=== PATIENT | male | born 1985 | race African-American/Black ===

== ENCOUNTER 2020-11-25 17:45 | Inpatient (IN) | payer OTHER, SELFPAY ==
[2020-11-25 17:59] VITALS: RESP 16
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
--- NOTE | 2020-11-25 18:38 | PC.NURSE ---
asked client question regarding food and drug allergy. patient didnt respond.
[2020-11-25 19:51] LABS: COVID-19 Test Negative (Negative); IDNOW Serial# 9DD0AD1C
[2020-11-25 21:16] LABS: Appearance Urine CLEAR; Color Urine YELLOW; Glucose Urine UA NEG (NEG); Leukocyte Esterase Urine NEG (NEG); Nitrite Urine NEG (NEG); PH 6.5 (5.0-8.0); Specific Gravity - Urine 1.025 (1.005-1.025); UACC Culture Trigger NO; Urine Blood NEG (NEG); Urine Ketones 5 MG/DL (NEG); Urine Protein 1+ MG/DL (NEG-TRACE)
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
[2020-11-25 21:29] LABS: Bacteria Urine TRACE /LPF; Mucus Urine 1+ /LPF; RBC Urine 0-2 /HPF (0); Squamous Epithelial Cell Urine TRACE /LPF; WBC Urine 0-2 /HPF (0-4)
[2020-11-25 21:36] LABS: Amphetamine Screen Urine Not Detected (Not Detect); Barbiturates, Urine Not Detected (Not Detect); Benzodiazepines Screen Urine Not Detected (Not Detect); Cannabinoid Screen Urine Not Detected (Not Detect); Cocaine Screen Urine Not Detected (Not Detect); Fentanyl, urine Not Detected (Not Detect); Opiate Screen Urine Not Detected (Not Detect); Phencyclidine Screen Urine Not Detected (Not Detect)
[2020-11-25 22:00] VITALS: RESP 20
[2020-11-25] MEDS: Haloperidol Lactate 5 MG/ML VIAL IM (22:00)
[2020-11-25] MEDS: diphenhydrAMINE HCL 50 MG/ML VIAL IM (22:00)
[2020-11-25] MEDS: LORazepam 2 MG/ML VIAL IM (22:00)
[2020-11-25 22:15] VITALS: RESP 20
[2020-11-25 22:30] VITALS: RESP 16
[2020-11-25 22:45] VITALS: RESP 18
--- NOTE | 2020-11-25 22:51 | MHC.CARE ---
Pt is an involuntary inpatient bedsearch. Pt will likely be going to [facility] today.
[2020-11-25 23:00] VITALS: RESP 20
--- NOTE | 2020-11-25 23:33 | PC.NURSE ---
Patient persistently demanding discharges when explain section 12 patient got severely agitated, [facility] called to check if any clinician coming to assess the patient and we were notified no clinician available at this time may be overnight but not sure. When information was relayed to the patient he got infuriated, offered medication refused, care team assistance requested, care team tried to assess the patient but patient did not share much, patient is tangential, paranoid, when patient disposition was updated to the patient, patient started yelling screaming, punching lockers, threatening, provider notified, ordered Ativan 2 mg IM, Haldol 5 mg IM, and Bendrayl 50 mg IM administered as ordered at 2200 with security's support, patient doesn't require physical restraint, patient is currently in chair sleeping, will continue to monitor.
--- NOTE | 2020-11-26 06:14 | PC.NURSE ---
Patient overall slept five hours in his chair, no distress observed/reported, patient behavior is unpredictable may escalate, medication non-compliant, thought process paranoid, internally occupied, poor eye contact, patient not cooperative with care team assessment, disposition per care team is section 12 inpatient, patient is being pre accepted to [facility], patient blood draw pending due to patient refusal, VSS, will continue to monitor.
[2020-11-26 06:48] VITALS: BP 145/87; PULSE 66; RESP 16; O2SAT 99
--- NOTE | 2020-11-26 07:03 | PC.NURSE ---
patient awake at the opening to shift, seated in room with lights on, still and staring. respirations even and [id number], patient appears in no distress
--- NOTE | 2020-11-26 07:08 | PC.NURSE ---
patient presented with breakfast and responds im trying to leave right now not interested in even sealed juice.
--- NOTE | 2020-11-26 07:39 | PC.NURSE ---
patient repeatedly requesting for me to call [facility] and have client released. t/w informed patient he was probably to be hospitalized today patient soon thereafter checked doors, sympbolically taps on glass of nurse station, checked care team door and exit door.
[2020-11-26 16:15] VITALS: BP 113/70; PULSE 165; TEMP 36.6
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
--- NOTE | 2020-11-27 10:32 | HO.PSYCHPN ---
Subjective Subjective Date of Service: 11/27/20 Reason For Visit: PSYCHOSIS Subjective Notes: Mayo Warning Healthcare Proxy: No Guardianship: No Medical Problems Affecting Mental Status: No Interim History: Pt isolating in room or pacing/intrussive at nursing desk - reaching for phones and other belongings, not responding to redirection- focused on getting out call the police and let me go asking to dial 911, wanting his belongings Had to call security to redirect milton to his room- Medication Compliance: No Attending Groups: No Review of Systems Acute medical concerns: No Review of Systems Review of Systems unable to focus on anything but dc Constitutional: Reports no additional constitutional complaints Mental Status Exam Mental Status Exam Patient Appearance: Disheveled Patient Orientation: Person Level of Consciousness: Awake Patient Behavior: Guarded, Suspicious, Restless, Verbal Threats (no specific), Resistive to Care, Uncooperative, Impulsive and Poor Eye Contact Behavior Comments: disheveled wearing sunglasses Mood Description: Hostile and Angry Affect Description: Suspicious and Hostile Patient Cognition Impaired: No Ability to Follow Directions: Poor Speech Pattern: Garbled, Rambling and Poor Articulation Thought Process: Racing and Illogical Thought Content: positive for Flight of Ideas, positive for Neologisms (?) and positive for Disorganized Abnormal Motor Activity Signs and Symptoms: Agitation Judgement: Poor Diagnostics Vital Signs (24Hr): Vital Signs - 24 hr 11/26/20 16:15 Temperature 97.8 F Pulse Rate 165 H Blood Pressure 113/70 Body Mass Index 30.0 Labs Labs: Laboratory Results - last 48 hr 11/25/20 11/25/20 11/25/20 19:25 21:03 21:03 Urine Color YELLOW Urine Appearance CLEAR Urine pH 6.5 Ur Specific [place] 1.025 Urine Protein 1+ H Urine Glucose (UA) NEG Urine Ketones 5 Urine Blood NEG Urine Nitrite NEG Ur Leukocyte Esterase NEG Urine RBC 0-2 Urine WBC 0-2 Ur Squamous Epith Cells TRACE Urine Bacteria TRACE Urine Mucus 1+ Urine Opiates Screen Not Detected Urine Fentanyl Screen Not Detected Ur Barbiturates Screen Not Detected Ur Phencyclidine Scrn Not Detected Ur Amphetamines Screen Not Detected U Benzodiazepines Scrn Not Detected Urine Cocaine Screen Not Detected U Marijuana (THC) Screen Not Detected COVID-19 (ANDERS) Negative COVID-19 Clin Com See Note Medications Medications Current Medications Acetaminophen (Acetaminophen 325 Mg Tablet) 650 mg PO Q6H PRN PRN Reason: Headache/Pain Mild Scale (1-3) Al Hydroxide/Mg Hydroxide (Magnesium Hydrox/Alum Hydrox 30 Ml Oral.Susp) 30 ml PO Q6H PRN PRN Reason: Heartburn/Nausea Diphenhydramine HCl (Diphenhydramine Hcl 50 Mg/Ml Vial) 50 mg IM BID PRN PRN Reason: agitation, EPS Haloperidol Lactate (Haloperidol Lactate 5 Mg/Ml Vial) 5 mg IM BID PRN PRN Reason: agitation, psychosis Hydroxyzine HCl (Hydroxyzine Hcl 50 Mg Tablet) 50 mg PO Q6H PRN PRN Reason: Anxiety Lorazepam (Lorazepam 2 Mg/Ml Vial) 2 mg IM BID PRN PRN Reason: agitation Magnesium Hydroxide (Milk Of Magnesia 30 Ml Oral.Susp) 30 ml PO DAILY PRN PRN Reason: Constipation Risperidone (Risperidone 2 Mg Tablet) 2 mg PO BEDTIME PRN PRN Reason: psychosis Trazodone HCl (Trazodone Hcl 50 Mg Tablet) 50 mg PO BEDTIME PRN PRN Reason: Insomnia Allergies Allergies Allergy/AdvReac Type Severity Reaction Status Date / Time No Known Allergies Allergy Unverified 11/13/19 18:45 Assessment & Plan Assessment & Plan (1) Schizoaffective disorder: Status: Acute Code(s): F25.9 - Schizoaffective disorder, unspecified Assessment and Plan: Pt continues agitated and disorganized with no insight or judgement Greater than 50% of the session was spent on counseling and/or coordination of care Patient educated on: other (on sec 12 b, need to stay on unit for now) Informed Consent: does not understand and further education needed Reason for contiued inpatient stay Substantial Risk for: inability to function and rapid decompensation
[2020-11-27] MEDS: Haloperidol Lactate 5 MG/ML VIAL 10 MG IM (22:10)
[2020-11-27] MEDS: LORazepam 2 MG/ML VIAL IM (22:10)
[2020-11-27] MEDS: diphenhydrAMINE HCL 50 MG/ML VIAL IM (22:10)
--- NOTE | 2020-11-27 22:33 | PM.EVENT ---
Event Note Date of Service: 11/27/20 Event Note: I saw patient after chemical retrain with Haldol and Benadryl. He was standing in middle of room, security standing by, he looks threatening and not allowing vitals evaluation at that time.
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
--- NOTE | 2020-11-28 09:58 | HO.PSYCHPN ---
Subjective Subjective Date of Service: 11/28/20 Reason For Visit: PSYCHOSIS Subjective Notes: Section 12B Interim History: Says he is fine, wants to know when he can leave, but no longer agitated at nurses station today compared to yesterday. Medication Compliance: No Attending Groups: No Review of Systems Acute medical concerns: No Medical Review of Systems: unchanged Diagnostics Vital Signs (24Hr): Body Mass Index 30.0 Medications Medications Current Medications Acetaminophen (Acetaminophen 325 Mg Tablet) 650 mg PO Q6H PRN PRN Reason: Headache/Pain Mild Scale (1-3) Al Hydroxide/Mg Hydroxide (Magnesium Hydrox/Alum Hydrox 30 Ml Oral.Susp) 30 ml PO Q6H PRN PRN Reason: Heartburn/Nausea Diphenhydramine HCl (Diphenhydramine Hcl 50 Mg/Ml Vial) 50 mg IM BID PRN PRN Reason: agitation, EPS Haloperidol Lactate (Haloperidol Lactate 5 Mg/Ml Vial) 5 mg IM BID PRN PRN Reason: agitation, psychosis Hydroxyzine HCl (Hydroxyzine Hcl 50 Mg Tablet) 50 mg PO Q6H PRN PRN Reason: Anxiety Lorazepam (Lorazepam 2 Mg/Ml Vial) 2 mg IM BID PRN PRN Reason: agitation Magnesium Hydroxide (Milk Of Magnesia 30 Ml Oral.Susp) 30 ml PO DAILY PRN PRN Reason: Constipation Risperidone (Risperidone 2 Mg Tablet) 2 mg PO BEDTIME PRN PRN Reason: psychosis Trazodone HCl (Trazodone Hcl 50 Mg Tablet) 50 mg PO BEDTIME PRN PRN Reason: Insomnia Allergies Allergies Allergy/AdvReac Type Severity Reaction Status Date / Time No Known Allergies Allergy Unverified 11/13/19 18:45 Assessment & Plan Assessment & Plan (1) Schizoaffective disorder: Status: Acute Code(s): F25.9 - Schizoaffective disorder, unspecified Assessment and Plan: Pt less agitated today and slept last pm but still pacing and not any more engaged in care- Greater than 50% of the session was spent on counseling and/or coordination of care Patient educated on: other Informed Consent: further education needed Reason for contiued inpatient stay Substantial Risk for: inability to function and rapid decompensation
[2020-11-29] MEDS: Haloperidol Lactate 5 MG/ML VIAL IM (13:29)
[2020-11-29] MEDS: LORazepam 2 MG/ML VIAL IM (13:29)
[2020-11-29 13:35] VITALS: BP 136/68; PULSE 89; RESP 18; TEMP 37.1; O2SAT 99
[2020-11-29 14:05] VITALS: BP 126/64; PULSE 79; RESP 16; TEMP 36.7; O2SAT 98
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
--- NOTE | 2020-11-29 15:40 | HO.PSYCHPN ---
Subjective Subjective Date of Service: 11/29/20 Reason For Visit: PSYCHOSIS Healthcare Proxy: No Guardianship: No Medical Problems Affecting Mental Status: No Interim History: Pt asking for discharge. Discussed re-starting medications. He reports hx of Invega, PO and Sustenna-he reported interest in returning to this regime. Right after we met-he became upset at the telephone and required physical, mechanical, chemical restraint. Cross reference to restraint progress note. Medication Compliance: No Side effects from medications: No Attending Groups: No Review of Systems Acute medical concerns: No Medical Review of Systems: unchanged Review of Systems Musculoskeletal: Reports other (reports leg discomfort, however, paranoia prevents him from discussion ) Reports behavioral changes Psychiatric: Reports abnormal sleep pattern, Reports anxiety, Reports behavioral changes, Reports change in appetite, Reports depression, Reports difficulty concentrating, Reports auditory hallucinations, Reports hopelessness, Reports irritability, Reports anhedonia, Reports mood swings, Reports paranoia, Reports homicidal ideation (denies) and Reports suicidal ideation (denies) Mental Status Exam Mental Status Exam Patient Appearance: Fatigued, Disheveled, Unkempt and Malodorous Patient Orientation: Person and Place Level of Consciousness: Awake, Restless and Combative Patient Behavior: Guarded, Talkative, Suspicious, Aggressive, Restless, Belligerent, Wandering, Verbal Threats, Swearing, Anxious, Fearful, Resistive to Care, Avoidant, Combative, Distractible, Confused, Isolative, Impulsive, Pacing and Poor Eye Contact (has dark sunglasses on) Mood Description: Calm, Suspicious, Withdrawn, Constricted, Hostile, Labile, Angry, Nervous and Apprehensive Affect Description: Constricted and Labile Patient Cognition Impaired: Yes Ability to Follow Directions: Poor Speech Pattern: Clear, Spontaneous Speech, Inappropriate, Excessive, Loud, Pressured and Includes Profanity Memory Description: Remote Impaired and Episodic Impaired Hallucinations: Auditory Delusions: Being Controlled, Paranoid Ideation and Present Perceptual Disturbances: Derealization and Hallucinations Thought Process: Illogical and Distracted Thought Content: positive for [place], positive for [place], positive for [place]um[place], positive for Perseveration, positive for Preoccupation, positive for Thought Blocking, positive for Suicidal Ideation (denied) and positive for Homicidal Ideation (denies) Depressive Symptoms: Increased Irritability, Loss of Int. in Activity and Difficulty Concentrating Abnormal Motor Activity Signs and Symptoms: Aggression, Agitation, Hyperactivity and Restlessness Judgement: Poor Diagnostics Vital Signs (24Hr): Vital Signs - 24 hr 11/29/20 13:35 11/29/20 14:05 Temperature 98.7 F 98.1 F Pulse Rate 89 79 Respiratory Rate 18 16 Blood Pressure 136/68 126/64 Pulse Oximetry 99 98 Body Mass Index 30.0 Medications Medications Current Medications Acetaminophen (Acetaminophen 325 Mg Tablet) 650 mg PO Q6H PRN PRN Reason: Headache/Pain Mild Scale (1-3) Al Hydroxide/Mg Hydroxide (Magnesium Hydrox/Alum Hydrox 30 Ml Oral.Susp) 30 ml PO Q6H PRN PRN Reason: Heartburn/Nausea Benztropine Mesylate (Benztropine Mesylate 1 Mg Tablet) 1 mg PO BID PRN PRN Reason: EPS Diphenhydramine HCl (Diphenhydramine Hcl 50 Mg/Ml Vial) 50 mg IM BID PRN PRN Reason: agitation, EPS Haloperidol Lactate (Haloperidol Lactate 5 Mg/Ml Vial) 5 mg IM BID PRN PRN Reason: agitation, psychosis Last Admin: 11/29/20 13:29 Dose: 5 mg Documented by: Hydroxyzine HCl (Hydroxyzine Hcl 50 Mg Tablet) 50 mg PO Q6H PRN PRN Reason: Anxiety Lorazepam (Lorazepam 2 Mg/Ml Vial) 2 mg IM BID PRN PRN Reason: agitation Last Admin: 11/29/20 13:29 Dose: 2 mg Documented by: Magnesium Hydroxide (Milk Of Magnesia 30 Ml Oral.Susp) 30 ml PO DAILY PRN PRN Reason: Constipation Paliperidone (Paliperidone Er 3 Mg Tab.Er.24) 3 mg PO DAILY JAIDEN Risperidone (Risperidone 2 Mg Tablet) 2 mg PO BEDTIME PRN PRN Reason: psychosis Trazodone HCl (Trazodone Hcl 50 Mg Tablet) 50 mg PO BEDTIME PRN PRN Reason: Insomnia Allergies Allergies Allergy/AdvReac Type Severity Reaction Status Date / Time No Known Allergies Allergy Unverified 11/13/19 18:45 Assessment & Plan Assessment & Plan (1) Schizoaffective disorder: Status: Acute Code(s): F25.9 - Schizoaffective disorder, unspecified Assessment and Plan: Pt precipitously agitated today-requiring physical, mechanical, chemical restraint. Prior to this, agreed to begin Invega PO with a longer term goal of a change to Sustenna. Greater than 50% of the session was spent on counseling and/or coordination of care Patient educated on: medication risk/benefits and therapeutic strategies Informed Consent: further education needed Reason for contiued inpatient stay Substantial Risk for: harm to self, harm to others, inability to function and rapid decompensation
[2020-11-29 18:00] VITALS: RESP 14
[2020-11-30] MEDS: Paliperidone ER 3 MG TAB.ER.24 PO (08:33)
[2020-11-30 09:30] VITALS: BP 131/79; PULSE 67; RESP 15; TEMP 36.6; O2SAT 99
--- NOTE | 2020-11-30 22:44 | HO.PSYCHPN ---
Subjective Subjective Date of Service: 11/30/20 Reason For Visit: PSYCHOSIS Subjective Notes: Section 12B Interim History: Met with Maciej to discuss plan of care. He reports he is asymptomatic and asks for discharge. Discussed briefly his legal status and plan to file for civil commitment on 12/01. Discussed plan to continue to titrate Invega-started with 3 mg today and will increase to base dosing of 6 mg on 12/01 with Sustenna IM to follow if he tolerates these po dosages. Pt continues to agree with the plan. Discussed avoiding court dates if we are able to titrate his medications and treat presenting symptoms so he may return to his home. Today, he discussed his concerns about time-wanting to be out by Sunday, then Sunday. Discussed taking this week to week and assessing his progress. He did agree to this and team reports no subsequent outburst of emotional agitation after our meeting. Met with pt later in the day and he commented this plan I can work with . Medication Compliance: Yes Side effects from medications: No Attending Groups: No Review of Systems Acute medical concerns: No Medical Review of Systems: unchanged Review of Systems Reports behavioral changes Psychiatric: Reports anxiety, Reports behavioral changes, Reports difficulty concentrating, Reports auditory hallucinations, Reports irritability, Reports mood swings and Reports paranoia Mental Status Exam Mental Status Exam Patient Appearance: Disheveled, Unkempt and Malodorous Patient Orientation: Person, Place and Situation Level of Consciousness: Alert Patient Behavior: Guarded, Talkative, Suspicious, Anxious, Fearful, Avoidant, Distractible, Good Eye Contact and Impulsive Mood Description: Constricted and Apprehensive Affect Description: Constricted Patient Cognition Impaired: Yes Ability to Follow Directions: Good Speech Pattern: Spontaneous Speech and Soft-Spoken Memory Description: Episodic Impaired Hallucinations: None (pt denies, however some of his behaviors appear to be responding to internal stimuli) Delusions: Paranoid Ideation Thought Process: Distracted Thought Content: positive for [place], positive for Circumstantial (focused on time today), positive for Perseveration, positive for Preoccupation, positive for Suicidal Ideation (denies) and positive for Homicidal Ideation (denies) Depressive Symptoms: Increased Anxiety, Diff. Making Decisions, Increased Irritability and Difficulty Concentrating Abnormal Motor Activity Signs and Symptoms: Restlessness (at times- responds to interventions) Judgement: Poor Diagnostics Vital Signs (24Hr): Vital Signs - 24 hr 11/30/20 09:30 Temperature 98 F Pulse Rate 67 Respiratory Rate 15 Blood Pressure 131/79 Pulse Oximetry 99 Body Mass Index 30.0 Labs Labs: Maciej has declined diagnostics at this time. Medications Medications Current Medications Acetaminophen (Acetaminophen 325 Mg Tablet) 650 mg PO Q6H PRN PRN Reason: Headache/Pain Mild Scale (1-3) Al Hydroxide/Mg Hydroxide (Magnesium Hydrox/Alum Hydrox 30 Ml Oral.Susp) 30 ml PO Q6H PRN PRN Reason: Heartburn/Nausea Benztropine Mesylate (Benztropine Mesylate 1 Mg Tablet) 1 mg PO BID PRN PRN Reason: EPS Diphenhydramine HCl (Diphenhydramine Hcl 50 Mg/Ml Vial) 50 mg IM BID PRN PRN Reason: agitation, EPS Haloperidol (Haloperidol 5 Mg Tablet) 5 mg PO TID PRN PRN Reason: psychosis, agitation Hydroxyzine HCl (Hydroxyzine Hcl 50 Mg Tablet) 50 mg PO Q6H PRN PRN Reason: Anxiety Lorazepam (Lorazepam 1 Mg Tablet) 1 mg PO Q4H PRN PRN Reason: anxiety, agitation Magnesium Hydroxide (Milk Of Magnesia 30 Ml Oral.Susp) 30 ml PO DAILY PRN PRN Reason: Constipation Paliperidone (Paliperidone Er 6 Mg Tab.Er.24) 6 mg PO DAILY JAIDEN Trazodone HCl (Trazodone Hcl 50 Mg Tablet) 50 mg PO BEDTIME PRN PRN Reason: Insomnia Allergies Allergies Allergy/AdvReac Type Severity Reaction Status Date / Time No Known Allergies Allergy Unverified 11/13/19 18:45 Assessment & Plan Assessment & Plan (1) Schizoaffective disorder: Status: Acute Code(s): F25.9 - Schizoaffective disorder, unspecified Assessment and Plan: 11/30/20- Maciej agrees to continue Invega PO trial-tolerated 3 mg this a.m. Will increase to base dose of 6mg on 12/01 and prepare for Sustenna injection. Will file for civil commitment on 12/01/20. Greater than 50% of the session was spent on counseling and/or coordination of care Patient educated on: medication risk/benefits and other (legal status and civil commitment) Informed Consent: understands and further education needed Reason for contiued inpatient stay Substantial Risk for: harm to self, harm to others, inability to function and rapid decompensation
[2020-12-01 06:00] VITALS: BP 118/65; PULSE 61; TEMP 36.1; O2SAT 100
[2020-12-01] MEDS: Paliperidone ER 6 MG TAB.ER.24 PO (09:24)
--- NOTE | 2020-12-01 19:38 | HO.PSYCHPN ---
Subjective Subjective Date of Service: 12/01/20 Reason For Visit: PSYCHOSIS Subjective Notes: Section 7 Interim History: Quiet, visable on the unit-on the periphery most of the time and mostly isolative. Few brief interactions with pt where he is calm, appropriate and able to engage without agitation or confrontation. Invega 6 mg initiated today po. Medication Compliance: Yes Side effects from medications: No Attending Groups: Yes Review of Systems Acute medical concerns: No Medical Review of Systems: unchanged Review of Systems Reports behavioral changes Psychiatric: Reports anxiety, Reports behavioral changes and Reports mood swings Mental Status Exam Mental Status Exam Patient Appearance: Disheveled, Unkempt and Malodorous Patient Orientation: Person, Place and Situation Level of Consciousness: Alert Patient Behavior: Guarded, Talkative, Suspicious, Anxious, Fearful, Avoidant, Distractible, Good Eye Contact and Impulsive Mood Description: Constricted and Apprehensive Affect Description: Constricted Patient Cognition Impaired: Yes Ability to Follow Directions: Good Speech Pattern: Spontaneous Speech and Soft-Spoken Memory Description: Episodic Impaired Hallucinations: None (pt denies, however some of his behaviors appear to be responding to internal stimuli) Delusions: Paranoid Ideation Thought Process: Distracted Thought Content: positive for [place], positive for Circumstantial (focused on time today), positive for Perseveration, positive for Preoccupation, positive for Suicidal Ideation (denies) and positive for Homicidal Ideation (denies) Depressive Symptoms: Increased Anxiety, Diff. Making Decisions, Increased Irritability and Difficulty Concentrating Abnormal Motor Activity Signs and Symptoms: Restlessness (at times- responds to interventions) Judgement: Poor Diagnostics Vital Signs (24Hr): Vital Signs - 24 hr 12/01/20 06:00 Temperature 97.0 F Pulse Rate 61 Blood Pressure 118/65 Pulse Oximetry 100 Body Mass Index 30.0 Medications Medications Current Medications Acetaminophen (Acetaminophen 325 Mg Tablet) 650 mg PO Q6H PRN PRN Reason: Headache/Pain Mild Scale (1-3) Al Hydroxide/Mg Hydroxide (Magnesium Hydrox/Alum Hydrox 30 Ml Oral.Susp) 30 ml PO Q6H PRN PRN Reason: Heartburn/Nausea Benztropine Mesylate (Benztropine Mesylate 1 Mg Tablet) 1 mg PO BID PRN PRN Reason: EPS Diphenhydramine HCl (Diphenhydramine Hcl 50 Mg/Ml Vial) 50 mg IM BID PRN PRN Reason: agitation, EPS Haloperidol (Haloperidol 5 Mg Tablet) 5 mg PO TID PRN PRN Reason: psychosis, agitation Hydroxyzine HCl (Hydroxyzine Hcl 50 Mg Tablet) 50 mg PO Q6H PRN PRN Reason: Anxiety Lorazepam (Lorazepam 1 Mg Tablet) 1 mg PO Q4H PRN PRN Reason: anxiety, agitation Magnesium Hydroxide (Milk Of Magnesia 30 Ml Oral.Susp) 30 ml PO DAILY PRN PRN Reason: Constipation Paliperidone (Paliperidone Er 6 Mg Tab.Er.24) 6 mg PO DAILY JAIDEN Last Admin: 12/01/20 09:24 Dose: 6 mg Documented by: Trazodone HCl (Trazodone Hcl 50 Mg Tablet) 50 mg PO BEDTIME PRN PRN Reason: Insomnia Allergies Allergies Allergy/AdvReac Type Severity Reaction Status Date / Time No Known Allergies Allergy Unverified 11/13/19 18:45 Assessment & Plan Assessment & Plan (1) Schizoaffective disorder: Status: Acute Code(s): F25.9 - Schizoaffective disorder, unspecified Assessment and Plan: 11/30/20- Maciej agrees to continue Invega PO trial-tolerated 3 mg this a.m. Will increase to base dose of 6mg on 12/01 and prepare for Sustenna injection. Will file for civil commitment on 12/01/20. 12/01/20: Accepting medications. Continue current plan. Greater than 50% of the session was spent on counseling and/or coordination of care Informed Consent: understands and further education needed Reason for contiued inpatient stay Substantial Risk for: harm to self, harm to others, inability to function and rapid decompensation
[2020-12-02] MEDS: Paliperidone ER 6 MG TAB.ER.24 PO (12:11)
[2020-12-02 18:00] VITALS: BP 140/78; PULSE 70
--- NOTE | 2020-12-02 21:44 | HO.PSYCHPN ---
Subjective Subjective Date of Service: 12/02/20 Reason For Visit: PSYCHOSIS Subjective Notes: Section 7 Interim History: Maciej this morning is confrontive about discharge. We had agreed on one week and we discussed this. Pt will only talk with tw in public areas-he has been pacing at times, has not showered although encouraged and was resistant to taking his a.m. medication this a.m. needing to negotiate times to take meds. Time is a theme for pt and of which he is very conscious of. Medication Compliance: Yes Side effects from medications: Yes ( tension ) Attending Groups: No Review of Systems Acute medical concerns: No Medical Review of Systems: unchanged Review of Systems Reports behavioral changes Psychiatric: Reports anxiety, Reports behavioral changes and Reports mood swings Mental Status Exam Mental Status Exam Patient Appearance: Disheveled, Unkempt and Malodorous Patient Orientation: Person, Place and Situation Level of Consciousness: Alert Patient Behavior: Guarded, Talkative, Suspicious, Anxious, Fearful, Avoidant, Distractible, Good Eye Contact and Impulsive Mood Description: Constricted and Apprehensive Affect Description: Constricted Patient Cognition Impaired: Yes Ability to Follow Directions: Good Speech Pattern: Spontaneous Speech and Soft-Spoken Memory Description: Episodic Impaired Hallucinations: None (pt denies, however some of his behaviors appear to be responding to internal stimuli) Delusions: Paranoid Ideation Thought Process: Distracted Thought Content: positive for [place], positive for Circumstantial (focused on time today), positive for Perseveration, positive for Preoccupation, positive for Suicidal Ideation (denies) and positive for Homicidal Ideation (denies) Depressive Symptoms: Increased Anxiety, Diff. Making Decisions, Increased Irritability and Difficulty Concentrating Abnormal Motor Activity Signs and Symptoms: Restlessness (at times- responds to interventions) Judgement: Poor Diagnostics Vital Signs (24Hr): Vital Signs - 24 hr 12/02/20 18:00 Pulse Rate 70 Blood Pressure 140/78 H Body Mass Index 30.0 Medications Medications Current Medications Acetaminophen (Acetaminophen 325 Mg Tablet) 650 mg PO Q6H PRN PRN Reason: Headache/Pain Mild Scale (1-3) Al Hydroxide/Mg Hydroxide (Magnesium Hydrox/Alum Hydrox 30 Ml Oral.Susp) 30 ml PO Q6H PRN PRN Reason: Heartburn/Nausea Benztropine Mesylate (Benztropine Mesylate 1 Mg Tablet) 1 mg PO BID PRN PRN Reason: EPS Diphenhydramine HCl (Diphenhydramine Hcl 50 Mg/Ml Vial) 50 mg IM BID PRN PRN Reason: agitation, EPS Haloperidol (Haloperidol 5 Mg Tablet) 5 mg PO TID PRN PRN Reason: psychosis, agitation Hydroxyzine HCl (Hydroxyzine Hcl 50 Mg Tablet) 50 mg PO Q6H PRN PRN Reason: Anxiety Lorazepam (Lorazepam 1 Mg Tablet) 1 mg PO Q4H PRN PRN Reason: anxiety, agitation Magnesium Hydroxide (Milk Of Magnesia 30 Ml Oral.Susp) 30 ml PO DAILY PRN PRN Reason: Constipation Paliperidone (Paliperidone Er 6 Mg Tab.Er.24) 6 mg PO DAILY JAIDEN Last Admin: 12/02/20 12:11 Dose: 6 mg Documented by: Trazodone HCl (Trazodone Hcl 50 Mg Tablet) 50 mg PO BEDTIME PRN PRN Reason: Insomnia Allergies Allergies Allergy/AdvReac Type Severity Reaction Status Date / Time No Known Allergies Allergy Unverified 11/13/19 18:45 Assessment & Plan Assessment & Plan (1) Schizoaffective disorder: Status: Acute Code(s): F25.9 - Schizoaffective disorder, unspecified Assessment and Plan: 11/30/20- Maciej agrees to continue Invega PO trial-tolerated 3 mg this a.m. Will increase to base dose of 6mg on 12/01 and prepare for Sustenna injection. Will file for civil commitment on 12/01/20. 12/01/20: Accepting medications. Continue current plan. 12/02/20: Section VII. Wanting to leave. Support and continue current plan. Greater than 50% of the session was spent on counseling and/or coordination of care Reason for contiued inpatient stay Substantial Risk for: harm to self, harm to others, inability to function and rapid decompensation
[2020-12-03] MEDS: Paliperidone ER 6 MG TAB.ER.24 PO (09:32)
--- NOTE | 2020-12-03 15:35 | HO.PSYCHPN ---
Subjective Subjective Date of Service: 12/03/20 Reason For Visit: PSYCHOSIS Subjective Notes: Section 7 Interim History: Accepting medication Visable on the unit-pacing. Denies current SE or issues. Focus is on discharge Declining showers, did change his clothing. Dark glasses are still in place. Medication Compliance: Yes Attending Groups: No Review of Systems Acute medical concerns: No Refuses diagnostics Medical Review of Systems: unchanged Review of Systems Reports behavioral changes Psychiatric: Reports anxiety, Reports behavioral changes and Reports mood swings Mental Status Exam Mental Status Exam Patient Appearance: Disheveled, Unkempt and Malodorous Patient Orientation: Person, Place and Situation Level of Consciousness: Alert Patient Behavior: Guarded, Talkative, Suspicious, Anxious, Fearful, Avoidant, Distractible, Good Eye Contact and Impulsive Mood Description: Constricted and Apprehensive Affect Description: Constricted Patient Cognition Impaired: Yes Ability to Follow Directions: Good Speech Pattern: Spontaneous Speech and Soft-Spoken Memory Description: Episodic Impaired Hallucinations: None (pt denies, however some of his behaviors appear to be responding to internal stimuli) Delusions: Paranoid Ideation Thought Process: Distracted Thought Content: positive for [place], positive for Circumstantial (focused on time today), positive for Perseveration, positive for Preoccupation, positive for Suicidal Ideation (denies) and positive for Homicidal Ideation (denies) Depressive Symptoms: Increased Anxiety, Diff. Making Decisions, Increased Irritability and Difficulty Concentrating Abnormal Motor Activity Signs and Symptoms: Restlessness (at times- responds to interventions) Judgement: Poor Diagnostics Vital Signs (24Hr): Vital Signs - 24 hr 12/02/20 18:00 Pulse Rate 70 Blood Pressure 140/78 H Body Mass Index 30.0 Medications Medications Current Medications Acetaminophen (Acetaminophen 325 Mg Tablet) 650 mg PO Q6H PRN PRN Reason: Headache/Pain Mild Scale (1-3) Al Hydroxide/Mg Hydroxide (Magnesium Hydrox/Alum Hydrox 30 Ml Oral.Susp) 30 ml PO Q6H PRN PRN Reason: Heartburn/Nausea Benztropine Mesylate (Benztropine Mesylate 1 Mg Tablet) 1 mg PO BID PRN PRN Reason: EPS Diphenhydramine HCl (Diphenhydramine Hcl 50 Mg/Ml Vial) 50 mg IM BID PRN PRN Reason: agitation, EPS Haloperidol (Haloperidol 5 Mg Tablet) 5 mg PO TID PRN PRN Reason: psychosis, agitation Hydroxyzine HCl (Hydroxyzine Hcl 50 Mg Tablet) 50 mg PO Q6H PRN PRN Reason: Anxiety Lorazepam (Lorazepam 1 Mg Tablet) 1 mg PO Q4H PRN PRN Reason: anxiety, agitation Magnesium Hydroxide (Milk Of Magnesia 30 Ml Oral.Susp) 30 ml PO DAILY PRN PRN Reason: Constipation Paliperidone (Paliperidone Er 6 Mg Tab.Er.24) 6 mg PO DAILY JAIDEN Last Admin: 12/03/20 09:32 Dose: 6 mg Documented by: Trazodone HCl (Trazodone Hcl 50 Mg Tablet) 50 mg PO BEDTIME PRN PRN Reason: Insomnia Allergies Allergies Allergy/AdvReac Type Severity Reaction Status Date / Time No Known Allergies Allergy Unverified 11/13/19 18:45 Assessment & Plan Assessment & Plan (1) Schizoaffective disorder: Status: Acute Code(s): F25.9 - Schizoaffective disorder, unspecified Assessment and Plan: 11/30/20- Maciej agrees to continue Invega PO trial-tolerated 3 mg this a.m. Will increase to base dose of 6mg on 12/01 and prepare for Sustenna injection. Will file for civil commitment on 12/01/20. 12/01/20: Accepting medications. Continue current plan. 12/02/20: Section VII. Wanting to leave. Support and continue current plan. 12/03/20: Calmer today. Continues to ask about discharge. Continue Invega. Greater than 50% of the session was spent on counseling and/or coordination of care Reason for contiued inpatient stay Substantial Risk for: harm to self, harm to others, inability to function and rapid decompensation
[2020-12-04] MEDS: Paliperidone ER 6 MG TAB.ER.24 PO (13:13)
--- NOTE | 2020-12-04 20:03 | P.PNPSI_ITS ---
Subjective Subjective Date of Service: 12/04/20 Reason For Visit: PSYCHOSIS Subjective Notes: Section 7 Interim History: Visable, approachable, quiet and withdrawn. Reports he is doing OK. Denies current adverse effects, denies current concerns about plan of care. Continues to report agreement to transition to RAZA on 12/06/20. Medication Compliance: Yes Side effects from medications: No (denies) Attending Groups: No Review of Systems Acute medical concerns: No Medical Review of Systems: unchanged Review of Systems Reports behavioral changes Psychiatric: Reports anxiety, Reports behavioral changes and Reports mood swings Mental Status Exam Mental Status Exam Patient Appearance: Disheveled and Unkempt Patient Orientation: Person, Place and Situation Level of Consciousness: Alert Patient Behavior: Guarded, Talkative, Suspicious, Anxious, Fearful, Avoidant, Distractible, Good Eye Contact and Impulsive Mood Description: Constricted and Apprehensive Affect Description: Constricted Patient Cognition Impaired: Yes Ability to Follow Directions: Good Speech Pattern: Spontaneous Speech and Soft-Spoken Memory Description: Episodic Impaired Hallucinations: None (pt denies, however some of his behaviors appear to be responding to internal stimuli) Delusions: Paranoid Ideation Thought Process: Distracted Thought Content: positive for [place], positive for Circumstantial (focused on time today), positive for Perseveration, positive for Preoccupation, positive for Suicidal Ideation (denies) and positive for Homicidal Ideation (denies) Depressive Symptoms: Increased Anxiety and Difficulty Concentrating Abnormal Motor Activity Signs and Symptoms: Restlessness (at times- responds to interventions) Judgement: Poor Diagnostics Vital Signs (24Hr): Body Mass Index 30.0 Medications Medications Current Medications Acetaminophen (Acetaminophen 325 Mg Tablet) 650 mg PO Q6H PRN PRN Reason: Headache/Pain Mild Scale (1-3) Al Hydroxide/Mg Hydroxide (Magnesium Hydrox/Alum Hydrox 30 Ml Oral.Susp) 30 ml PO Q6H PRN PRN Reason: Heartburn/Nausea Benztropine Mesylate (Benztropine Mesylate 1 Mg Tablet) 1 mg PO BID PRN PRN Reason: EPS Diphenhydramine HCl (Diphenhydramine Hcl 50 Mg/Ml Vial) 50 mg IM BID PRN PRN Reason: agitation, EPS Haloperidol (Haloperidol 5 Mg Tablet) 5 mg PO TID PRN PRN Reason: psychosis, agitation Hydroxyzine HCl (Hydroxyzine Hcl 50 Mg Tablet) 50 mg PO Q6H PRN PRN Reason: Anxiety Lorazepam (Lorazepam 1 Mg Tablet) 1 mg PO Q4H PRN PRN Reason: anxiety, agitation Magnesium Hydroxide (Milk Of Magnesia 30 Ml Oral.Susp) 30 ml PO DAILY PRN PRN Reason: Constipation Paliperidone (Paliperidone Er 6 Mg Tab.Er.24) 6 mg PO DAILY JAIDEN Last Admin: 12/04/20 13:13 Dose: 6 mg Documented by: Trazodone HCl (Trazodone Hcl 50 Mg Tablet) 50 mg PO BEDTIME PRN PRN Reason: Insomnia Allergies Allergies Allergy/AdvReac Type Severity Reaction Status Date / Time No Known Allergies Allergy Unverified 11/13/19 18:45 Assessment & Plan Assessment & Plan (1) Schizoaffective disorder: Status: Acute Code(s): F25.9 - Schizoaffective disorder, unspecified Assessment and Plan: 11/30/20- Maciej agrees to continue Invega PO trial-tolerated 3 mg this a.m. Will increase to base dose of 6mg on 12/01 and prepare for Sustenna injection. Will file for civil commitment on 12/01/20. 12/01/20: Accepting medications. Continue current plan. 12/02/20: Section VII. Wanting to leave. Support and continue current plan. 12/03/20: Calmer today. Continues to ask about discharge. Continue Invega. 12/04/20: Denies medication SE. Continues to agree for RAZA plan to begin on 12/06/20. Greater than 50% of the session was spent on counseling and/or coordination of care Patient educated on: medication risk/benefits Informed Consent: understands and further education needed Reason for contiued inpatient stay Substantial Risk for: harm to self, harm to others, inability to function and rapid decompensation
[2020-12-05] MEDS: Paliperidone ER 6 MG TAB.ER.24 PO (13:09)
--- NOTE | 2020-12-05 14:48 | HO.PSYCHPN ---
Subjective Subjective Date of Service: 12/05/20 Reason For Visit: PSYCHOSIS Subjective Notes: Section 7 Healthcare Proxy: No Guardianship: No Medical Problems Affecting Mental Status: No Interim History: Quiet, of few words. Hygiene/ADL's remain poorly attended to. Pt continues to wear dark glasses, he will walk in the halls but is minimally interactive. He will talk/nod if approached. He reports he has no suicidal ideation or ideation to harm others. He agrees to Invega Sustenna injection on 12/[address] the order for this. Tentative court date 12/09. Medication Compliance: Yes Side effects from medications: No Attending Groups: No Review of Systems Acute medical concerns: No Pt continues to refuse diagnostics. Medical Review of Systems: unchanged Review of Systems Reports behavioral changes Psychiatric: Reports anxiety, Reports behavioral changes and Reports mood swings Mental Status Exam Mental Status Exam Patient Appearance: Disheveled and Unkempt Patient Orientation: Person, Place and Situation Level of Consciousness: Alert Patient Behavior: Guarded, Talkative, Suspicious, Anxious, Fearful, Avoidant, Distractible, Good Eye Contact and Impulsive Mood Description: Constricted and Apprehensive Affect Description: Constricted Patient Cognition Impaired: Yes Ability to Follow Directions: Good Speech Pattern: Spontaneous Speech and Soft-Spoken Memory Description: Episodic Impaired Hallucinations: None (pt denies, however some of his behaviors appear to be responding to internal stimuli) Delusions: Paranoid Ideation Thought Process: Distracted Thought Content: positive for [place], positive for Circumstantial (focused on time today), positive for Perseveration, positive for Preoccupation, positive for Suicidal Ideation (denies) and positive for Homicidal Ideation (denies) Depressive Symptoms: Increased Anxiety and Difficulty Concentrating Abnormal Motor Activity Signs and Symptoms: Restlessness (at times- responds to interventions) Judgement: Poor Diagnostics Vital Signs (24Hr): Body Mass Index 30.0 Medications Medications Current Medications Acetaminophen (Acetaminophen 325 Mg Tablet) 650 mg PO Q6H PRN PRN Reason: Headache/Pain Mild Scale (1-3) Al Hydroxide/Mg Hydroxide (Magnesium Hydrox/Alum Hydrox 30 Ml Oral.Susp) 30 ml PO Q6H PRN PRN Reason: Heartburn/Nausea Benztropine Mesylate (Benztropine Mesylate 1 Mg Tablet) 1 mg PO BID PRN PRN Reason: EPS Diphenhydramine HCl (Diphenhydramine Hcl 50 Mg/Ml Vial) 50 mg IM BID PRN PRN Reason: agitation, EPS Haloperidol (Haloperidol 5 Mg Tablet) 5 mg PO TID PRN PRN Reason: psychosis, agitation Hydroxyzine HCl (Hydroxyzine Hcl 50 Mg Tablet) 50 mg PO Q6H PRN PRN Reason: Anxiety Lorazepam (Lorazepam 1 Mg Tablet) 1 mg PO Q4H PRN PRN Reason: anxiety, agitation Magnesium Hydroxide (Milk Of Magnesia 30 Ml Oral.Susp) 30 ml PO DAILY PRN PRN Reason: Constipation Paliperidone (Paliperidone Er 6 Mg Tab.Er.24) 6 mg PO DAILY JAIDEN Last Admin: 12/05/20 13:09 Dose: 6 mg Documented by: Trazodone HCl (Trazodone Hcl 50 Mg Tablet) 50 mg PO BEDTIME PRN PRN Reason: Insomnia Allergies Allergies Allergy/AdvReac Type Severity Reaction Status Date / Time No Known Allergies Allergy Unverified 11/13/19 18:45 Assessment & Plan Assessment & Plan (1) Schizoaffective disorder: Status: Acute Code(s): F25.9 - Schizoaffective disorder, unspecified Assessment and Plan: 11/30/20- Maciej agrees to continue Invega PO trial-tolerated 3 mg this a.m. Will increase to base dose of 6mg on 12/01 and prepare for Sustenna injection. Will file for civil commitment on 12/01/20. 12/01/20: Accepting medications. Continue current plan. 12/02/20: Section VII. Wanting to leave. Support and continue current plan. 12/03/20: Calmer today. Continues to ask about discharge. Continue Invega. 12/04/20: Denies medication SE. Continues to agree for RAZA plan to begin on 12/06/20. 12/05/20: Agrees to RAZA for 12/06/20. Refused diagnostics again today. Invega Sustenna 234 mg IM 12/06/20. Discontinue Invega PO. Greater than 50% of the session was spent on counseling and/or coordination of care Informed Consent: further education needed Reason for contiued inpatient stay Substantial Risk for: harm to self, harm to others, inability to function and rapid decompensation
--- NOTE | 2020-12-05 23:33 | PC.NURSE ---
Pt appeared belligerent around 2139. Pt appeared focused on a peer and a staff member. Pt reported that the other patient put forth negative energry and passed it on to the staff member. Pt demanded to be discharged from the unit and threatened to fight staff if he were not released. Staff disengaged and pt appeared to calm down.
[2020-12-06] MEDS: Paliperidone Palmitate 234 MG/1.5 ML SYRINGE IM (12:58)
--- NOTE | 2020-12-06 13:11 | PC.NURSE ---
pt accepted the invega injection in the r deltoid without incident
--- NOTE | 2020-12-06 18:07 | P.PNPSI_ITS ---
Subjective Subjective Date of Service: 12/06/20 Reason For Visit: PSYCHOSIS Subjective Notes: Section 7 Interim History: Pt accepted Invega Sustenna today 234 mg. Follow up dose of 156 mg scheduled for 12/13/20. Section VII. Court date 12/09/20 which we will probably not need. Pt has no PCP and therefore cannot have [facility]NA access. As a result he will need continued in pt care until second injection is given He continues to appear to respond to internal stimuli and is guarded, avoidant. Medication Compliance: Yes Side effects from medications: No Attending Groups: No Review of Systems Acute medical concerns: No Pt refuses diagnostics Medical Review of Systems: unchanged Review of Systems Reports behavioral changes Psychiatric: Reports anxiety, Reports behavioral changes, Reports depression, Reports difficulty concentrating, Reports auditory hallucinations, Reports paranoia, Reports visual hallucinations and Reports hallucinations Mental Status Exam Mental Status Exam Patient Appearance: Disheveled and Unkempt Patient Orientation: Person, Place and Situation Level of Consciousness: Alert Patient Behavior: Guarded, Talkative, Suspicious, Anxious, Fearful, Avoidant, Distractible, Good Eye Contact and Impulsive Mood Description: Constricted and Apprehensive Affect Description: Constricted Patient Cognition Impaired: Yes Ability to Follow Directions: Good Speech Pattern: Spontaneous Speech and Soft-Spoken Memory Description: Episodic Impaired Hallucinations: None (pt denies, however some of his behaviors appear to be responding to internal stimuli) Delusions: Paranoid Ideation Thought Process: Distracted Thought Content: positive for [place], positive for Circumstantial (focused on time today), positive for Perseveration, positive for Preoccupation, positive for Suicidal Ideation (denies) and positive for Homicidal Ideation (denies) Depressive Symptoms: Increased Anxiety and Difficulty Concentrating Abnormal Motor Activity Signs and Symptoms: Restlessness (at times- responds to interventions) Judgement: Poor Diagnostics Vital Signs (24Hr): Body Mass Index 30.0 Medications Medications Current Medications Acetaminophen (Acetaminophen 325 Mg Tablet) 650 mg PO Q6H PRN PRN Reason: Headache/Pain Mild Scale (1-3) Al Hydroxide/Mg Hydroxide (Magnesium Hydrox/Alum Hydrox 30 Ml Oral.Susp) 30 ml PO Q6H PRN PRN Reason: Heartburn/Nausea Benztropine Mesylate (Benztropine Mesylate 1 Mg Tablet) 1 mg PO BID PRN PRN Reason: EPS Diphenhydramine HCl (Diphenhydramine Hcl 50 Mg/Ml Vial) 50 mg IM BID PRN PRN Reason: agitation, EPS Hydroxyzine HCl (Hydroxyzine Hcl 50 Mg Tablet) 50 mg PO Q6H PRN PRN Reason: Anxiety Lorazepam (Lorazepam 1 Mg Tablet) 1 mg PO Q4H PRN PRN Reason: anxiety, agitation Magnesium Hydroxide (Milk Of Magnesia 30 Ml Oral.Susp) 30 ml PO DAILY PRN PRN Reason: Constipation Paliperidone (Paliperidone Er 3 Mg Tab.Er.24) 3 mg PO DAILY JAIDEN Paliperidone Palmitate (Paliperidone Palmitate 156 Mg/Ml Syringe) 156 mg IM ONCE ONE Stop: 12/13/20 08:06 Trazodone HCl (Trazodone Hcl 50 Mg Tablet) 50 mg PO BEDTIME PRN PRN Reason: Insomnia Allergies Allergies Allergy/AdvReac Type Severity Reaction Status Date / Time No Known Allergies Allergy Unverified 11/13/19 18:45 Assessment & Plan Assessment & Plan (1) Schizoaffective disorder: Status: Acute Code(s): F25.9 - Schizoaffective disorder, unspecified Assessment and Plan: 11/30/20- Maciej agrees to continue Invega PO trial-tolerated 3 mg this a.m. Will increase to base dose of 6mg on 12/01 and prepare for Sustenna injection. Will file for civil commitment on 12/01/20. 12/01/20: Accepting medications. Continue current plan. 12/02/20: Section VII. Wanting to leave. Support and continue current plan. 12/03/20: Calmer today. Continues to ask about discharge. Continue Invega. 12/04/20: Denies medication SE. Continues to agree for RAZA plan to begin on 12/06/20. 12/05/20: Agrees to RAZA for 12/06/20. Refused diagnostics again today. Invega Sustenna 234 mg IM 12/06/20. Discontinue Invega PO. 12/06/20: Invega Sustenna 234 mg given Invega Sustenna 156 mg due 12/13/20. Begin Invega 3 mg po on 12/07-await efficacy of RAZA. Encourage diagnostics Court 12/09. Greater than 50% of the session was spent on counseling and/or coordination of care Informed Consent: further education needed Reason for contiued inpatient stay Substantial Risk for: harm to self, harm to others, inability to function and rapid decompensation
[2020-12-07 06:00] VITALS: BP 120/60; PULSE 66; TEMP 35.4; O2SAT 97
[2020-12-07] MEDS: Paliperidone ER 3 MG TAB.ER.24 PO (09:28)
--- NOTE | 2020-12-07 12:40 | P.PNPSI_ITS ---
Subjective Subjective Date of Service: 12/07/20 Reason For Visit: PSYCHOSIS Subjective Notes: Section 8 Interim History: Pt pacing down the newsome, minimal interactions with peers or staff. Somewhat guarded when asked to talk with this financial writer. Pt reports he took RAZA two days ago, no pain on site of injection. He asks when he can be discharged. Pt denies SI/HI. Pt continues to present as paranoid and suspicious, stands several feet away from this financial writer and declines meeting in office. Pt later seen increasingly more agitated due to paranoia, redirected by staff. Medication Compliance: Yes Side effects from medications: No Attending Groups: No Review of Systems Review of Systems unable to focus on anything but dc Yes all other systems are reviewed and are negative Constitutional: Reports as per HPI and Reports no additional constitutional complaints Eyes: Reports as per HPI and Reports no additional eye complaints Reports system reviewed and no additional complaints, except as documented and Reports as per HPI Cardiovascular: Reports as per HPI and Reports no additional cardiovascular complaints Respiratory: Reports as per HPI and Reports no additional respiratory complaints Gastrointestinal: Reports as per HPI and Reports no additional gastrointestinal complaints Genitourinary: Reports no additional male genitourinary complaints Musculoskeletal: Reports no additional musculoskeletal complaints, Reports as per HPI and Reports other (reports leg discomfort, however, paranoia prevents him from discussion ) Reports system reviewed and no additional complaints, except as documented, Reports as per HPI and Reports behavioral changes Psychiatric: Reports no additional psychiatric complaints, Reports as per HPI, Reports abnormal sleep pattern, Reports anxiety, Reports behavioral changes, Reports change in appetite, Reports depression, Reports difficulty concentrating, Reports auditory hallucinations, Reports hopelessness, Reports irritability, Reports anhedonia, Reports mood swings, Reports paranoia, Reports visual hallucinations, Reports hallucinations, Reports homicidal ideation (denies) and Reports suicidal ideation (denies) Mental Status Exam Mental Status Exam Narrative: A&O to person and place but not situation. Unkempt, in hospital attire, wearing old mask, sunglasses, poor hygiene, malodorous. Poor eye contact, inattentive. No Tics or Tremors. No abnormal involuntary movements. Guarded, difficult to engage. Non-pressured speech, non-spontaneous, low vocal volume, some mumbling. Mood is fine , affect is constricted. Denies SI/SIB/HI upon inquiry. Appears to be internally preoccupied but denies perceptual disturbances/ AVH. Thoughts are concrete, perseverative on going home. No known cognitive or memory impairment. Insight/ Judgment impaired x 2. Diagnostics Vital Signs (24Hr): Vital Signs - 24 hr 12/07/20 06:00 Temperature 95.8 F L Pulse Rate 66 Blood Pressure 120/60 Pulse Oximetry 97 Body Mass Index 30.0 Medications Medications Current Medications Acetaminophen (Acetaminophen 325 Mg Tablet) 650 mg PO Q6H PRN PRN Reason: Headache/Pain Mild Scale (1-3) Al Hydroxide/Mg Hydroxide (Magnesium Hydrox/Alum Hydrox 30 Ml Oral.Susp) 30 ml PO Q6H PRN PRN Reason: Heartburn/Nausea Benztropine Mesylate (Benztropine Mesylate 1 Mg Tablet) 1 mg PO BID PRN PRN Reason: EPS Diphenhydramine HCl (Diphenhydramine Hcl 50 Mg/Ml Vial) 50 mg IM BID PRN PRN Reason: agitation, EPS Hydroxyzine HCl (Hydroxyzine Hcl 50 Mg Tablet) 50 mg PO Q6H PRN PRN Reason: Anxiety Lorazepam (Lorazepam 1 Mg Tablet) 1 mg PO Q4H PRN PRN Reason: anxiety, agitation Magnesium Hydroxide (Milk Of Magnesia 30 Ml Oral.Susp) 30 ml PO DAILY PRN PRN Reason: Constipation Paliperidone (Paliperidone Er 3 Mg Tab.Er.24) 3 mg PO DAILY JAIDEN Last Admin: 12/07/20 09:28 Dose: 3 mg Documented by: Paliperidone Palmitate (Paliperidone Palmitate 156 Mg/Ml Syringe) 156 mg IM ONCE ONE Stop: 12/13/20 08:06 Trazodone HCl (Trazodone Hcl 50 Mg Tablet) 50 mg PO BEDTIME PRN PRN Reason: Insomnia Allergies Allergies Allergy/AdvReac Type Severity Reaction Status Date / Time No Known Allergies Allergy Unverified 11/13/19 18:45 Assessment & Plan Assessment & Plan (1) Schizoaffective disorder: Status: Acute Code(s): F25.9 - Schizoaffective disorder, unspecified Assessment and Plan: 11/30/20- Maciej agrees to continue Invega PO trial-tolerated 3 mg this a.m. Will increase to base dose of 6mg on 12/01 and prepare for Sustenna injection. Will file for civil commitment on 12/01/20. 12/01/20: Accepting medications. Continue current plan. 12/02/20: Section VII. Wanting to leave. Support and continue current plan. 12/03/20: Calmer today. Continues to ask about discharge. Continue Invega. 12/04/20: Denies medication SE. Continues to agree for RAZA plan to begin on 12/06/20. 12/05/20: Agrees to RAZA for 12/06/20. Refused diagnostics again today. Invega Sustenna 234 mg IM 12/06/20. Discontinue Invega PO. 12/06/20: Invega Sustenna 234 mg given Invega Sustenna 156 mg due 12/13/20. Begin Invega 3 mg po on 12/07-await efficacy of RAZA. Encourage diagnostics Court 12/09. 12/07: no medication changes. continues to present as paranoid and suspicious. Greater than 50% of the session was spent on counseling and/or coordination of care Reason for contiued inpatient stay Substantial Risk for: harm to others and inability to function
--- NOTE | 2020-12-07 13:39 | PC.NURSE ---
Patient has been pacing halls throughout the shift asking for belongings while talking about going home. His behavior escalated to the point that security was called and all other patients were either in their room or kitchen. Patient eventually calmed down without incident or need for medication. No insight into situation. Patient has court hearing 12/09/20.
[2020-12-07 16:41] VITALS: RESP 18
[2020-12-08] MEDS: Paliperidone ER 3 MG TAB.ER.24 PO (09:18)
[2020-12-08 09:36] VITALS: BP 130/63; PULSE 74; RESP 16; TEMP 37; O2SAT 97
--- NOTE | 2020-12-08 12:46 | HO.PSYCHPN ---
Subjective Subjective Date of Service: 12/08/20 Reason For Visit: PSYCHOSIS Subjective Notes: Section 7 Healthcare Proxy: No Guardianship: No Medical Problems Affecting Mental Status: No Interim History: Pt is isolative, responds to questions, is of few words with team, states his immigration attorney was in yesterday and they are planning discharge after court tomorrow. Agreed to meet with ad writer. Discussed having his second injection of Invega Sustenna on 12/13-he agrees, states he would return to have this, but is feeling ready to leave. States he will return to [facility]. Team reports instance of agitation, threatening behavior on 12/07. When asked, pt states that he observed several people leaving who had no association with court and wanted to know why he was not allowed the same opportunity. Education attempted. Informed pt we would keep him updated regarding how his immigration attorney wanted to proceed as soon as we were informed. Team reports pts immigration attorney may want MIRIAN and continuation. Medication Compliance: Yes Side effects from medications: No Attending Groups: No Review of Systems Acute medical concerns: No Medical Review of Systems: unchanged Review of Systems Review of Systems Yes Unobtainable due to mental status Psychiatric: Reports irritability, Reports homicidal ideation (denies) and Reports suicidal ideation (denies) Mental Status Exam Mental Status Exam Patient Appearance: Disheveled, Unkempt and Malodorous Patient Orientation: Person, Place, Time and Situation Level of Consciousness: Awake and Alert Patient Behavior: Guarded, Talkative, Suspicious and Poor Eye Contact (pt wears dark glasses) Mood Description: Constricted Affect Description: Constricted Ability to Follow Directions: Good Speech Pattern: Spontaneous Speech Memory Description: Episodic Impaired Hallucinations: None (denies) Delusions: Paranoid Ideation Thought Process: Distracted and Goal Oriented Thought Content: positive for Goal Oriented, positive for Suicidal Ideation (denies) and positive for Homicidal Ideation (denies) Abnormal Motor Activity Signs and Symptoms: Restlessness Judgement: Fair Diagnostics Vital Signs (24Hr): Vital Signs - 24 hr 12/07/20 16:41 12/08/20 09:36 Temperature 98.6 F Pulse Rate 74 Respiratory Rate 18 16 Blood Pressure 130/63 Pulse Oximetry 97 Body Mass Index 30.0 Medications Medications Current Medications Acetaminophen (Acetaminophen 325 Mg Tablet) 650 mg PO Q6H PRN PRN Reason: Headache/Pain Mild Scale (1-3) Al Hydroxide/Mg Hydroxide (Magnesium Hydrox/Alum Hydrox 30 Ml Oral.Susp) 30 ml PO Q6H PRN PRN Reason: Heartburn/Nausea Benztropine Mesylate (Benztropine Mesylate 1 Mg Tablet) 1 mg PO BID PRN PRN Reason: EPS Diphenhydramine HCl (Diphenhydramine Hcl 50 Mg/Ml Vial) 50 mg IM BID PRN PRN Reason: agitation, EPS Hydroxyzine HCl (Hydroxyzine Hcl 50 Mg Tablet) 50 mg PO Q6H PRN PRN Reason: Anxiety Lorazepam (Lorazepam 1 Mg Tablet) 1 mg PO Q4H PRN PRN Reason: anxiety, agitation Magnesium Hydroxide (Milk Of Magnesia 30 Ml Oral.Susp) 30 ml PO DAILY PRN PRN Reason: Constipation Paliperidone (Paliperidone Er 3 Mg Tab.Er.24) 3 mg PO DAILY JAIDEN Last Admin: 12/08/20 09:18 Dose: 3 mg Documented by: Paliperidone Palmitate (Paliperidone Palmitate 156 Mg/Ml Syringe) 156 mg IM ONCE ONE Stop: 12/13/20 08:06 Trazodone HCl (Trazodone Hcl 50 Mg Tablet) 50 mg PO BEDTIME PRN PRN Reason: Insomnia Allergies Allergies Allergy/AdvReac Type Severity Reaction Status Date / Time No Known Allergies Allergy Unverified 11/13/19 18:45 Assessment & Plan Assessment & Plan (1) Schizoaffective disorder: Status: Acute Code(s): F25.9 - Schizoaffective disorder, unspecified Assessment and Plan: 11/30/20- Maciej agrees to continue Invega PO trial-tolerated 3 mg this a.m. Will increase to base dose of 6mg on 12/01 and prepare for Sustenna injection. Will file for civil commitment on 12/01/20. 12/01/20: Accepting medications. Continue current plan. 12/02/20: Section VII. Wanting to leave. Support and continue current plan. 12/03/20: Calmer today. Continues to ask about discharge. Continue Invega. 12/04/20: Denies medication SE. Continues to agree for RAZA plan to begin on 12/06/20. 12/05/20: Agrees to RAZA for 12/06/20. Refused diagnostics again today. Invega Sustenna 234 mg IM 12/06/20. Discontinue Invega PO. 12/06/20: Invega Sustenna 234 mg given Invega Sustenna 156 mg due 12/13/20. Begin Invega 3 mg po on 12/07-await efficacy of RAZA. Encourage diagnostics Court 12/09. 12/07: no medication changes. continues to present as paranoid and suspicious. 12/08: continue current plan. Court 12/09/20. Section 7 Greater than 50% of the session was spent on counseling and/or coordination of care Patient educated on: medication risk/benefits and other (court process) Informed Consent: further education needed Reason for contiued inpatient stay Substantial Risk for: rapid decompensation
[2020-12-09] MEDS: Paliperidone ER 3 MG TAB.ER.24 PO (13:48)
--- NOTE | 2020-12-09 18:40 | P.PNPSI_ITS ---
Subjective Subjective Date of Service: 12/09/20 Reason For Visit: PSYCHOSIS Subjective Notes: Section 7 Interim History: Pt's assistant district attorney has continued his court date and will have MIRIAN. Discussed with pt who was reasonable and understanding, stating I understand why I am here but I don't want to be here . No agitation, psychosis or aggression during our discussion. Pt was calm, clear, coherent. Planning his next injection for 12/13. Denies SE. Seen throughout the day walking in the [place]. Denies akathesia sx. Nods to acknowledge when spoken to. Will give a thumbs up when asked how he is doing. Shakes his head no when asked if he needs anything. Continues with wearing dark glasses and without attention to ADL's. Mood is significantly calmer. States no when asked if he needs anything or if we may do anything to help him be more comfortable. Medication Compliance: Yes Side effects from medications: No Attending Groups: No Review of Systems Acute medical concerns: No Review of Systems Review of Systems Yes Other (denies sx.) Reports behavioral changes Psychiatric: Reports no additional psychiatric complaints, Reports behavioral changes, Reports homicidal ideation (denies) and Reports suicidal ideation (denies) Mental Status Exam Mental Status Exam Patient Appearance: Disheveled, Unkempt and Malodorous Patient Orientation: Person, Place, Time and Situation Level of Consciousness: Awake and Alert Patient Behavior: Guarded, Talkative, Suspicious and Poor Eye Contact (pt wears dark glasses) Mood Description: Constricted Affect Description: Constricted Ability to Follow Directions: Good Speech Pattern: Spontaneous Speech Memory Description: Episodic Impaired Hallucinations: None (denies) Delusions: Paranoid Ideation Thought Process: Distracted and Goal Oriented Thought Content: positive for Goal Oriented, positive for Suicidal Ideation (denies) and positive for Homicidal Ideation (denies) Abnormal Motor Activity Signs and Symptoms: Restlessness Judgement: Fair Diagnostics Vital Signs (24Hr): Body Mass Index 30.0 Medications Medications Current Medications Acetaminophen (Acetaminophen 325 Mg Tablet) 650 mg PO Q6H PRN PRN Reason: Headache/Pain Mild Scale (1-3) Al Hydroxide/Mg Hydroxide (Magnesium Hydrox/Alum Hydrox 30 Ml Oral.Susp) 30 ml PO Q6H PRN PRN Reason: Heartburn/Nausea Benztropine Mesylate (Benztropine Mesylate 1 Mg Tablet) 1 mg PO BID PRN PRN Reason: EPS Diphenhydramine HCl (Diphenhydramine Hcl 50 Mg/Ml Vial) 50 mg IM BID PRN PRN Reason: agitation, EPS Hydroxyzine HCl (Hydroxyzine Hcl 50 Mg Tablet) 50 mg PO Q6H PRN PRN Reason: Anxiety Lorazepam (Lorazepam 1 Mg Tablet) 1 mg PO Q4H PRN PRN Reason: anxiety, agitation Magnesium Hydroxide (Milk Of Magnesia 30 Ml Oral.Susp) 30 ml PO DAILY PRN PRN Reason: Constipation Paliperidone (Paliperidone Er 3 Mg Tab.Er.24) 3 mg PO DAILY JAIDEN Last Admin: 12/09/20 13:48 Dose: 3 mg Documented by: Paliperidone Palmitate (Paliperidone Palmitate 156 Mg/Ml Syringe) 156 mg IM ONCE ONE Stop: 12/13/20 08:06 Trazodone HCl (Trazodone Hcl 50 Mg Tablet) 50 mg PO BEDTIME PRN PRN Reason: Insomnia Allergies Allergies Allergy/AdvReac Type Severity Reaction Status Date / Time No Known Allergies Allergy Unverified 11/13/19 18:45 Assessment & Plan Assessment & Plan (1) Schizoaffective disorder: Status: Acute Code(s): F25.9 - Schizoaffective disorder, unspecified Assessment and Plan: 11/30/20- Maciej agrees to continue Invega PO trial-tolerated 3 mg this a.m. Will increase to base dose of 6mg on 12/01 and prepare for Sustenna injection. Will file for civil commitment on 12/01/20. 12/01/20: Accepting medications. Continue current plan. 12/02/20: Section VII. Wanting to leave. Support and continue current plan. 12/03/20: Calmer today. Continues to ask about discharge. Continue Invega. 12/04/20: Denies medication SE. Continues to agree for RAZA plan to begin on 12/06/20. 12/05/20: Agrees to RAZA for 12/06/20. Refused diagnostics again today. Invega Sustenna 234 mg IM 12/06/20. Discontinue Invega PO. 12/06/20: Invega Sustenna 234 mg given Invega Sustenna 156 mg due 12/13/20. Begin Invega 3 mg po on 12/07-await efficacy of RAZA. Encourage diagnostics Court 12/09. 12/07: no medication changes. continues to present as paranoid and suspicious. 12/08: continue current plan. Court 12/09/20. Section 7 12/09: Court date is continued. Pt is understanding and accepting of this change. He will contact his assistant district attorney. Continue current plan. Greater than 50% of the session was spent on counseling and/or coordination of care Informed Consent: understands Reason for contiued inpatient stay Substantial Risk for: harm to self, harm to others, inability to function and rapid decompensation
[2020-12-10] MEDS: Paliperidone ER 3 MG TAB.ER.24 PO (11:35)
--- NOTE | 2020-12-10 17:29 | HO.PSYCHPN ---
Subjective Subjective Date of Service: 12/10/20 Reason For Visit: PSYCHOSIS Subjective Notes: Section 7 Interim History: Maciej reports no current concerns. Visable in milieu. Walking in the hallway. Denies this as a sx of akathesia. Court date postponed until 12/16, MIRIAN requested by pt's consumer attorney. Next Sustenna injection due 12/13. Seen sitting in the kitchen with peers for brief periods today-a change for pt-a decrease in his isolation. Medication Compliance: Yes Side effects from medications: No (denies) Attending Groups: No Review of Systems Acute medical concerns: No Medical Review of Systems: unchanged Review of Systems Review of Systems Yes Other (denies sx.) Reports behavioral changes Psychiatric: Reports no additional psychiatric complaints, Reports behavioral changes, Reports homicidal ideation (denies) and Reports suicidal ideation (denies) Mental Status Exam Mental Status Exam Patient Appearance: Disheveled, Unkempt and Malodorous Patient Orientation: Person, Place, Time and Situation Level of Consciousness: Awake and Alert Patient Behavior: Guarded, Talkative, Suspicious and Poor Eye Contact (pt wears dark glasses) Mood Description: Constricted Affect Description: Constricted Ability to Follow Directions: Good Speech Pattern: Spontaneous Speech Memory Description: Episodic Impaired Hallucinations: None (denies) Delusions: Paranoid Ideation Thought Process: Distracted and Goal Oriented Thought Content: positive for Goal Oriented, positive for Suicidal Ideation (denies) and positive for Homicidal Ideation (denies) Abnormal Motor Activity Signs and Symptoms: Restlessness Judgement: Fair Diagnostics Vital Signs (24Hr): Body Mass Index 30.0 Medications Medications Current Medications Acetaminophen (Acetaminophen 325 Mg Tablet) 650 mg PO Q6H PRN PRN Reason: Headache/Pain Mild Scale (1-3) Al Hydroxide/Mg Hydroxide (Magnesium Hydrox/Alum Hydrox 30 Ml Oral.Susp) 30 ml PO Q6H PRN PRN Reason: Heartburn/Nausea Benztropine Mesylate (Benztropine Mesylate 1 Mg Tablet) 1 mg PO BID PRN PRN Reason: EPS Diphenhydramine HCl (Diphenhydramine Hcl 50 Mg/Ml Vial) 50 mg IM BID PRN PRN Reason: agitation, EPS Hydroxyzine HCl (Hydroxyzine Hcl 50 Mg Tablet) 50 mg PO Q6H PRN PRN Reason: Anxiety Lorazepam (Lorazepam 1 Mg Tablet) 1 mg PO Q4H PRN PRN Reason: anxiety, agitation Magnesium Hydroxide (Milk Of Magnesia 30 Ml Oral.Susp) 30 ml PO DAILY PRN PRN Reason: Constipation Paliperidone (Paliperidone Er 3 Mg Tab.Er.24) 3 mg PO DAILY JAIDEN Last Admin: 12/10/20 11:35 Dose: 3 mg Documented by: Paliperidone Palmitate (Paliperidone Palmitate 156 Mg/Ml Syringe) 156 mg IM ONCE ONE Stop: 12/13/20 08:06 Trazodone HCl (Trazodone Hcl 50 Mg Tablet) 50 mg PO BEDTIME PRN PRN Reason: Insomnia Allergies Allergies Allergy/AdvReac Type Severity Reaction Status Date / Time No Known Allergies Allergy Unverified 11/13/19 18:45 Assessment & Plan Assessment & Plan (1) Schizoaffective disorder: Status: Acute Code(s): F25.9 - Schizoaffective disorder, unspecified Assessment and Plan: 11/30/20- Maciej agrees to continue Invega PO trial-tolerated 3 mg this a.m. Will increase to base dose of 6mg on 12/01 and prepare for Sustenna injection. Will file for civil commitment on 12/01/20. 12/01/20: Accepting medications. Continue current plan. 12/02/20: Section VII. Wanting to leave. Support and continue current plan. 12/03/20: Calmer today. Continues to ask about discharge. Continue Invega. 12/04/20: Denies medication SE. Continues to agree for RAZA plan to begin on 12/06/20. 12/05/20: Agrees to RAZA for 12/06/20. Refused diagnostics again today. Invega Sustenna 234 mg IM 12/06/20. Discontinue Invega PO. 12/06/20: Invega Sustenna 234 mg given Invega Sustenna 156 mg due 12/13/20. Begin Invega 3 mg po on 12/07-await efficacy of RAZA. Encourage diagnostics Court 12/09. 12/07: no medication changes. continues to present as paranoid and suspicious. 12/08: continue current plan. Court 12/09/20. Section 7 12/09: Court date is continued. Pt is understanding and accepting of this change. He will contact his consumer attorney. Continue current plan. 12/10: Continue current regime. Court date 12/16/20. Greater than 50% of the session was spent on counseling and/or coordination of care Informed Consent: further education needed Reason for contiued inpatient stay Substantial Risk for: harm to self, harm to others, inability to function and rapid decompensation
[2020-12-10 18:00] VITALS: BP 128/67; PULSE 67
[2020-12-11] MEDS: Paliperidone ER 3 MG TAB.ER.24 PO (12:10)
--- NOTE | 2020-12-11 23:02 | HO.PSYCHPN ---
Subjective Subjective Date of Service: 12/11/20 Reason For Visit: PSYCHOSIS Subjective Notes: Section 7 Healthcare Proxy: No Guardianship: No Interim History: Pt isolative but accepting medication withdrawn internally preoccupied accepting zyprexa Medication Compliance: Yes Review of Systems Medical Review of Systems: unchanged Mental Status Exam Mental Status Exam Patient Appearance: Disheveled, Unkempt and Malodorous Patient Orientation: Person, Place, Time and Situation Level of Consciousness: Awake and Alert Patient Behavior: Guarded, Talkative, Suspicious and Poor Eye Contact (pt wears dark glasses) Mood Description: Constricted Affect Description: Constricted Ability to Follow Directions: Good Speech Pattern: Spontaneous Speech Memory Description: Episodic Impaired Hallucinations: None (denies) Delusions: Paranoid Ideation Thought Process: Distracted and Goal Oriented Thought Content: positive for Goal Oriented, positive for Suicidal Ideation (denies) and positive for Homicidal Ideation (denies) Abnormal Motor Activity Signs and Symptoms: Restlessness Judgement: Fair Diagnostics Vital Signs (24Hr): Body Mass Index 30.0 Medications Medications Current Medications Acetaminophen (Acetaminophen 325 Mg Tablet) 650 mg PO Q6H PRN PRN Reason: Headache/Pain Mild Scale (1-3) Al Hydroxide/Mg Hydroxide (Magnesium Hydrox/Alum Hydrox 30 Ml Oral.Susp) 30 ml PO Q6H PRN PRN Reason: Heartburn/Nausea Benztropine Mesylate (Benztropine Mesylate 1 Mg Tablet) 1 mg PO BID PRN PRN Reason: EPS Diphenhydramine HCl (Diphenhydramine Hcl 50 Mg/Ml Vial) 50 mg IM BID PRN PRN Reason: agitation, EPS Hydroxyzine HCl (Hydroxyzine Hcl 50 Mg Tablet) 50 mg PO Q6H PRN PRN Reason: Anxiety Lorazepam (Lorazepam 1 Mg Tablet) 1 mg PO Q4H PRN PRN Reason: anxiety, agitation Magnesium Hydroxide (Milk Of Magnesia 30 Ml Oral.Susp) 30 ml PO DAILY PRN PRN Reason: Constipation Paliperidone (Paliperidone Er 3 Mg Tab.Er.24) 3 mg PO DAILY JAIDEN Last Admin: 12/11/20 12:10 Dose: 3 mg Documented by: Paliperidone Palmitate (Paliperidone Palmitate 156 Mg/Ml Syringe) 156 mg IM ONCE ONE Stop: 12/13/20 08:06 Trazodone HCl (Trazodone Hcl 50 Mg Tablet) 50 mg PO BEDTIME PRN PRN Reason: Insomnia Allergies Allergies Allergy/AdvReac Type Severity Reaction Status Date / Time No Known Allergies Allergy Unverified 11/13/19 18:45 Assessment & Plan Assessment & Plan (1) Schizoaffective disorder: Status: Acute Code(s): F25.9 - Schizoaffective disorder, unspecified Assessment and Plan: 11/30/20- Maciej agrees to continue Invega PO trial-tolerated 3 mg this a.m. Will increase to base dose of 6mg on 12/01 and prepare for Sustenna injection. Will file for civil commitment on 12/01/20. 12/01/20: Accepting medications. Continue current plan. 12/02/20: Section VII. Wanting to leave. Support and continue current plan. 12/03/20: Calmer today. Continues to ask about discharge. Continue Invega. 12/04/20: Denies medication SE. Continues to agree for RAZA plan to begin on 12/06/20. 12/05/20: Agrees to RAZA for 12/06/20. Refused diagnostics again today. Invega Sustenna 234 mg IM 12/06/20. Discontinue Invega PO. 12/06/20: Invega Sustenna 234 mg given Invega Sustenna 156 mg due 12/13/20. Begin Invega 3 mg po on 12/07-await efficacy of RAZA. Encourage diagnostics Court 12/09. 12/07: no medication changes. continues to present as paranoid and suspicious. 12/08: continue current plan. Court 12/09/20. Section 7 12/09: Court date is continued. Pt is understanding and accepting of this change. 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 Continue current plan. 12/10: Continue current regime. Court date 12/16/20. Patient has been accepting medication may be discharged prior to court hearing isolated withdrawn med has been taking medication not aggressive Greater than 50% of the session was spent on counseling and/or coordination of care Reason for contiued inpatient stay Substantial Risk for: harm to others
[2020-12-12] MEDS: Paliperidone ER 3 MG TAB.ER.24 PO (12:27)
[2020-12-12 16:22] VITALS: BP 143/76; PULSE 79; TEMP 36.2
--- NOTE | 2020-12-12 23:20 | P.PNPSI_ITS ---
Subjective Subjective Date of Service: 12/12/20 Reason For Visit: PSYCHOSIS Subjective Notes: Section 7 Healthcare Proxy: No Guardianship: No Interim History: Patient seen on the unit generally isolative wearing sunglasses minimal engagement not threatening or aggressive Medication Compliance: Yes Mental Status Exam Mental Status Exam Patient Appearance: Disheveled Patient Orientation: Person and Place Level of Consciousness: Awake Patient Behavior: Guarded Mood Description: Withdrawn, Anxious and Blunted Affect Description: Constricted Speech Pattern: Impoverished Delusions: Paranoid Ideation Thought Content: negative for Suicidal Ideation or negative for Homicidal Ideation Judgement and Insight: Difficult to evaluate cognition and thought process patient mumbling quite soft-spoken minimal engagement shakes his head when asked about the room from self or others Diagnostics Vital Signs (24Hr): Vital Signs - 24 hr 12/12/20 16:22 Temperature 97.2 F Pulse Rate 79 Blood Pressure 143/76 H Body Mass Index 30.0 Medications Medications Current Medications Acetaminophen (Acetaminophen 325 Mg Tablet) 650 mg PO Q6H PRN PRN Reason: Headache/Pain Mild Scale (1-3) Al Hydroxide/Mg Hydroxide (Magnesium Hydrox/Alum Hydrox 30 Ml Oral.Susp) 30 ml PO Q6H PRN PRN Reason: Heartburn/Nausea Benztropine Mesylate (Benztropine Mesylate 1 Mg Tablet) 1 mg PO BID PRN PRN Reason: EPS Diphenhydramine HCl (Diphenhydramine Hcl 50 Mg/Ml Vial) 50 mg IM BID PRN PRN Reason: agitation, EPS Hydroxyzine HCl (Hydroxyzine Hcl 50 Mg Tablet) 50 mg PO Q6H PRN PRN Reason: Anxiety Lorazepam (Lorazepam 1 Mg Tablet) 1 mg PO Q4H PRN PRN Reason: anxiety, agitation Magnesium Hydroxide (Milk Of Magnesia 30 Ml Oral.Susp) 30 ml PO DAILY PRN PRN Reason: Constipation Paliperidone (Paliperidone Er 3 Mg Tab.Er.24) 3 mg PO DAILY JAIDEN Last Admin: 12/12/20 12:27 Dose: 3 mg Documented by: Paliperidone Palmitate (Paliperidone Palmitate 156 Mg/Ml Syringe) 156 mg IM ONCE ONE Stop: 12/13/20 08:06 Trazodone HCl (Trazodone Hcl 50 Mg Tablet) 50 mg PO BEDTIME PRN PRN Reason: Insomnia Allergies Allergies Allergy/AdvReac Type Severity Reaction Status Date / Time No Known Allergies Allergy Unverified 11/13/19 18:45 Assessment & Plan Assessment & Plan (1) Schizoaffective disorder: Status: Acute Code(s): F25.9 - Schizoaffective disorder, unspecified Assessment and Plan: 11/30/20- Macije agrees to continue Invega PO trial-tolerated 3 mg this a.m. Will increase to base dose of 6mg on 12/01 and prepare for Sustenna injection. Will file for civil commitment on 12/01/20. 12/01/20: Accepting medications. Continue current plan. 12/02/20: Section VII. Wanting to leave. Support and continue current plan. 12/03/20: Calmer today. Continues to ask about discharge. Continue Invega. 12/04/20: Denies medication SE. Continues to agree for RAZA plan to begin on 12/06/20. 12/05/20: Agrees to RAZA for 12/06/20. Refused diagnostics again today. Invega Sustenna 234 mg IM 12/06/20. Discontinue Invega PO. 12/06/20: Invega Sustenna 234 mg given Invega Sustenna 156 mg due 12/13/20. Begin Invega 3 mg po on 12/07-await efficacy of RAZA. Encourage diagnostics Court 12/09. 12/07: no medication changes. continues to present as paranoid and suspicious. 12/08: continue current plan. Court 12/09/20. Section 7 12/09: Court date is continued. Pt is understanding and accepting of this change. He will contact his document review attorney. Continue current plan. 12/10: Continue current regime. Court date 12/16/20. Patient has been accepting medication may be discharged prior to court hearing isolated withdrawn med has been taking medication not aggressive 12/12/2020 Continue Invega patient remains guarded somewhat isolative but not threatening or aggressive sectioning [address] Continue plan of care Greater than 50% of the session was spent on counseling and/or coordination of care Reason for contiued inpatient stay Substantial Risk for: inability to function and rapid decompensation
[2020-12-13] MEDS: Paliperidone Palmitate 156 MG/ML SYRINGE IM (13:24)
[2020-12-13 18:00] VITALS: BP 141/66; PULSE 75; RESP 16; TEMP 36.4; O2SAT 97
--- NOTE | 2020-12-13 20:04 | HO.PSYCHPN ---
Subjective Subjective Date of Service: 12/13/20 Reason For Visit: PSYCHOSIS Subjective Notes: Section 7 Healthcare Proxy: No Guardianship: No Medical Problems Affecting Mental Status: No Interim History: Maciej received his second Invega Sustenna injection today with no hesitation. He continues quiet, isolative. He does talk with team when addressed and was observed laughing and joking with the team. Medication Compliance: Yes Side effects from medications: No Attending Groups: Yes Review of Systems Acute medical concerns: No Medical Review of Systems: unchanged Review of Systems Reports behavioral changes Psychiatric: Reports behavioral changes, Reports paranoia, Reports homicidal ideation (denies) and Reports suicidal ideation (denies) Mental Status Exam Mental Status Exam Patient Appearance: Appropriate, Unkempt and Malodorous Patient Orientation: Person, Place and Situation Level of Consciousness: Awake and Alert Patient Behavior: Appropriate, Guarded, Suspicious and Poor Eye Contact (wears dark glasses) Mood Description: Suspicious and Withdrawn Affect Description: Suspicious and Withdrawn Patient Cognition Impaired: No Ability to Follow Directions: Good Speech Pattern: Spontaneous Speech Memory Description: Episodic Impaired Hallucinations: None (denies) Delusions: Paranoid Ideation Thought Process: Distracted Thought Content: positive for Circumstantial and positive for Perseveration Judgement: Fair Diagnostics Vital Signs (24Hr): Vital Signs - 24 hr 12/13/20 18:00 Temperature 97.6 F Pulse Rate 75 Respiratory Rate 16 Blood Pressure 141/66 H Pulse Oximetry 97 Body Mass Index 30.0 Medications Medications Current Medications Acetaminophen (Acetaminophen 325 Mg Tablet) 650 mg PO Q6H PRN PRN Reason: Headache/Pain Mild Scale (1-3) Al Hydroxide/Mg Hydroxide (Magnesium Hydrox/Alum Hydrox 30 Ml Oral.Susp) 30 ml PO Q6H PRN PRN Reason: Heartburn/Nausea Benztropine Mesylate (Benztropine Mesylate 1 Mg Tablet) 1 mg PO BID PRN PRN Reason: EPS Diphenhydramine HCl (Diphenhydramine Hcl 50 Mg/Ml Vial) 50 mg IM BID PRN PRN Reason: agitation, EPS Hydroxyzine HCl (Hydroxyzine Hcl 50 Mg Tablet) 50 mg PO Q6H PRN PRN Reason: Anxiety Magnesium Hydroxide (Milk Of Magnesia 30 Ml Oral.Susp) 30 ml PO DAILY PRN PRN Reason: Constipation Paliperidone (Paliperidone Er 3 Mg Tab.Er.24) 3 mg PO DAILY JAIDEN Last Admin: 12/13/20 13:31 Dose: Not Given Documented by: Trazodone HCl (Trazodone Hcl 50 Mg Tablet) 50 mg PO BEDTIME PRN PRN Reason: Insomnia Allergies Allergies Allergy/AdvReac Type Severity Reaction Status Date / Time No Known Allergies Allergy Unverified 11/13/19 18:45 Assessment & Plan Assessment & Plan (1) Schizoaffective disorder: Status: Acute Code(s): F25.9 - Schizoaffective disorder, unspecified Assessment and Plan: 11/30/20- Maciej agrees to continue Invega PO trial-tolerated 3 mg this a.m. Will increase to base dose of 6mg on 12/01 and prepare for Sustenna injection. Will file for civil commitment on 12/01/20. 12/01/20: Accepting medications. Continue current plan. 12/02/20: Section VII. Wanting to leave. Support and continue current plan. 12/03/20: Calmer today. Continues to ask about discharge. Continue Invega. 12/04/20: Denies medication SE. Continues to agree for RAZA plan to begin on 12/06/20. 12/05/20: Agrees to RAZA for 12/06/20. Refused diagnostics again today. Invega Sustenna 234 mg IM 12/06/20. Discontinue Invega PO. 12/06/20: Invega Sustenna 234 mg given Invega Sustenna 156 mg due 12/13/20. Begin Invega 3 mg po on 12/07-await efficacy of RAZA. Encourage diagnostics Court 12/09. 12/07: no medication changes. continues to present as paranoid and suspicious. 12/08: continue current plan. Court 12/09/20. Section 7 12/09: Court date is continued. Pt is understanding and accepting of this change. He will contact his workers compensation defense attorney. Continue current plan. 12/10: Continue current regime. Court date 12/16/20. Patient has been accepting medication may be discharged prior to court hearing isolated withdrawn med has been taking medication not aggressive 12/12/2020 Continue Invega patient remains guarded somewhat isolative but not threatening or aggressive sectioning [address] Continue plan of care 12/13/20 Continue plan of care Greater than 50% of the session was spent on counseling and/or coordination of care Patient educated on: therapeutic strategies Informed Consent: understands Reason for contiued inpatient stay Substantial Risk for: harm to others, inability to function and rapid decompensation
[2020-12-14 06:00] VITALS: BP 153/90; PULSE 83; RESP 16; TEMP 36.9; O2SAT 98
[2020-12-14] MEDS: Paliperidone ER 3 MG TAB.ER.24 PO (10:48)
--- NOTE | 2020-12-14 11:32 | P.PNPSI_ITS ---
Subjective Subjective Date of Service: 12/14/20 Reason For Visit: PSYCHOSIS Subjective Notes: Section 7 Healthcare Proxy: No Guardianship: No Medical Problems Affecting Mental Status: No Interim History: Met with pt to discuss treatment planning. He has initiated his first two doses of Invega without adverse effects and is willing to continue with the monthly injection. Discussed return to [place] [id number] with [facility] and [employer] support which he wants to do. He is aware he will not return to the same room and accepts this, stating- this new room I will do better with-I will keep it cleaned. Pt agrees to work with [facility] however declines referral to [facility], as well as all offered diagnostics. He does agree to meet with a new PCP to receive his ongoing injections. Pt is more visable on the unit. He is able to sit in the kitchen with others, writing. He comments to tw that this admission was not what he had expected. Everyone here has shown care and being kind to me. Medication Compliance: Yes Side effects from medications: No Attending Groups: No Review of Systems Acute medical concerns: No Medical Review of Systems: unchanged Review of Systems Review of Systems Yes all other systems are reviewed and are negative Psychiatric: Reports anxiety and Reports paranoia Mental Status Exam Mental Status Exam Patient Appearance: Appropriate, Unkempt and Malodorous Patient Orientation: Person, Place and Situation Level of Consciousness: Awake and Alert Patient Behavior: Appropriate, Guarded, Suspicious and Poor Eye Contact (wears dark glasses) Mood Description: Withdrawn Affect Description: Withdrawn Patient Cognition Impaired: No Ability to Follow Directions: Good Speech Pattern: Spontaneous Speech Memory Description: Episodic Impaired Hallucinations: None (denies) Delusions: Not Present Thought Process: Distracted Thought Content: positive for Circumstantial and positive for Perseveration Judgement: Good Diagnostics Vital Signs (24Hr): Vital Signs - 24 hr 12/13/20 18:00 12/14/20 06:00 Temperature 97.6 F 98.4 F Pulse Rate 75 83 Respiratory Rate 16 16 Blood Pressure 141/66 H 153/90 H Pulse Oximetry 97 98 Body Mass Index 30.0 Medications Medications Current Medications Acetaminophen (Acetaminophen 325 Mg Tablet) 650 mg PO Q6H PRN PRN Reason: Headache/Pain Mild Scale (1-3) Al Hydroxide/Mg Hydroxide (Magnesium Hydrox/Alum Hydrox 30 Ml Oral.Susp) 30 ml PO Q6H PRN PRN Reason: Heartburn/Nausea Benztropine Mesylate (Benztropine Mesylate 1 Mg Tablet) 1 mg PO BID PRN PRN Reason: EPS Diphenhydramine HCl (Diphenhydramine Hcl 50 Mg/Ml Vial) 50 mg IM BID PRN PRN Reason: agitation, EPS Hydroxyzine HCl (Hydroxyzine Hcl 50 Mg Tablet) 50 mg PO Q6H PRN PRN Reason: Anxiety Magnesium Hydroxide (Milk Of Magnesia 30 Ml Oral.Susp) 30 ml PO DAILY PRN PRN Reason: Constipation Paliperidone (Paliperidone Er 3 Mg Tab.Er.24) 3 mg PO DAILY JAIDEN Last Admin: 12/14/20 10:48 Dose: 3 mg Documented by: Trazodone HCl (Trazodone Hcl 50 Mg Tablet) 50 mg PO BEDTIME PRN PRN Reason: Insomnia Allergies Allergies Allergy/AdvReac Type Severity Reaction Status Date / Time No Known Allergies Allergy Unverified 11/13/19 18:45 Assessment & Plan Assessment & Plan (1) Schizoaffective disorder: Status: Acute Code(s): F25.9 - Schizoaffective disorder, unspecified Assessment and Plan: 11/30/20- Maciej agrees to continue Invega PO trial-tolerated 3 mg this a.m. Will increase to base dose of 6mg on 12/01 and prepare for Sustenna injection. Will file for civil commitment on 12/01/20. 12/01/20: Accepting medications. Continue current plan. 12/02/20: Section VII. Wanting to leave. Support and continue current plan. 12/03/20: Calmer today. Continues to ask about discharge. Continue Invega. 12/04/20: Denies medication SE. Continues to agree for RAZA plan to begin on 12/06/20. 12/05/20: Agrees to RAZA for 12/06/20. Refused diagnostics again today. Invega Sustenna 234 mg IM 12/06/20. Discontinue Invega PO. 12/06/20: Invega Sustenna 234 mg given Invega Sustenna 156 mg due 12/13/20. Begin Invega 3 mg po on 12/07-await efficacy of RAZA. Encourage diagnostics Court 12/09. 12/07: no medication changes. continues to present as paranoid and suspicious. 12/08: continue current plan. Court 12/09/20. Section 7 12/09: Court date is continued. Pt is understanding and accepting of this change. 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 Continue current plan. 12/10: Continue current regime. Court date 12/16/20. Patient has been accepting medication may be discharged prior to court hearing isolated withdrawn med has been taking medication not aggressive 12/12/2020 Continue Invega patient remains guarded somewhat isolative but not threatening or aggressive sectioning [address] Continue plan of care 12/13/20 Continue plan of care 12/14/20 Discharge planning for 12/16/20. Greater than 50% of the session was spent on counseling and/or coordination of care Patient educated on: medication risk/benefits, therapeutic strategies and medical condition Informed Consent: understands Reason for contiued inpatient stay Substantial Risk for: rapid decompensation
[2020-12-15] MEDS: Paliperidone ER 3 MG TAB.ER.24 PO (12:05)
[2020-12-15 18:00] VITALS: BP 115/66; PULSE 80
--- NOTE | 2020-12-15 21:27 | HO.PSYCHPN ---
Subjective Subjective Date of Service: 12/15/20 Reason For Visit: PSYCHOSIS Subjective Notes: Section 7 Healthcare Proxy: No Guardianship: No Medical Problems Affecting Mental Status: No Interim History: Pt showered and completed laundry today in preparation for discharge with nursing support. He reports he is pleased to be going home, but it has not been bad here, everyone is kind to me. I did not understand at first why you were keeping me. I know now that you all just help people who have sickness. Medication Compliance: Yes Side effects from medications: No Attending Groups: No Review of Systems Acute medical concerns: No Medical Review of Systems: unchanged Review of Systems Review of Systems Yes all other systems are reviewed and are negative Psychiatric: Reports anxiety Mental Status Exam Mental Status Exam Patient Appearance: Appropriate Patient Orientation: Person, Place and Situation Level of Consciousness: Awake and Alert Patient Behavior: Appropriate, Guarded, Talkative and Poor Eye Contact (wears dark glasses) Mood Description: Withdrawn Affect Description: Withdrawn Patient Cognition Impaired: No Ability to Follow Directions: Good Speech Pattern: Spontaneous Speech Memory Description: Episodic Impaired Hallucinations: None (denies) Delusions: Not Present Thought Process: Intact Thought Content: positive for Intact Judgement: Good Diagnostics Vital Signs (24Hr): Body Mass Index 30.0 Medications Medications Current Medications Acetaminophen (Acetaminophen 325 Mg Tablet) 650 mg PO Q6H PRN PRN Reason: Headache/Pain Mild Scale (1-3) Al Hydroxide/Mg Hydroxide (Magnesium Hydrox/Alum Hydrox 30 Ml Oral.Susp) 30 ml PO Q6H PRN PRN Reason: Heartburn/Nausea Benztropine Mesylate (Benztropine Mesylate 1 Mg Tablet) 1 mg PO BID PRN PRN Reason: EPS Diphenhydramine HCl (Diphenhydramine Hcl 50 Mg/Ml Vial) 50 mg IM BID PRN PRN Reason: agitation, EPS Hydroxyzine HCl (Hydroxyzine Hcl 50 Mg Tablet) 50 mg PO Q6H PRN PRN Reason: Anxiety Magnesium Hydroxide (Milk Of Magnesia 30 Ml Oral.Susp) 30 ml PO DAILY PRN PRN Reason: Constipation Paliperidone (Paliperidone Er 3 Mg Tab.Er.24) 3 mg PO DAILY JAIDEN Last Admin: 12/15/20 12:05 Dose: 3 mg Documented by: Trazodone HCl (Trazodone Hcl 50 Mg Tablet) 50 mg PO BEDTIME PRN PRN Reason: Insomnia Allergies Allergies Allergy/AdvReac Type Severity Reaction Status Date / Time No Known Allergies Allergy Unverified 11/13/19 18:45 Assessment & Plan Assessment & Plan (1) Schizoaffective disorder: Status: Acute Code(s): F25.9 - Schizoaffective disorder, unspecified Assessment and Plan: 11/30/20- Maciej agrees to continue Invega PO trial-tolerated 3 mg this a.m. Will increase to base dose of 6mg on 12/01 and prepare for Sustenna injection. Will file for civil commitment on 12/01/20. 12/01/20: Accepting medications. Continue current plan. 12/02/20: Section VII. Wanting to leave. Support and continue current plan. 12/03/20: Calmer today. Continues to ask about discharge. Continue Invega. 12/04/20: Denies medication SE. Continues to agree for RAZA plan to begin on 12/06/20. 12/05/20: Agrees to RAZA for 12/06/20. Refused diagnostics again today. Invega Sustenna 234 mg IM 12/06/20. Discontinue Invega PO. 12/06/20: Invega Sustenna 234 mg given Invega Sustenna 156 mg due 12/13/20. Begin Invega 3 mg po on 12/07-await efficacy of RAZA. Encourage diagnostics Court 12/09. 12/07: no medication changes. continues to present as paranoid and suspicious. 12/08: continue current plan. Court 12/09/20. Section 7 12/09: Court date is continued. Pt is understanding and accepting of this change. 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 Continue current plan. 12/10: Continue current regime. Court date 12/16/20. Patient has been accepting medication may be discharged prior to court hearing isolated withdrawn med has been taking medication not aggressive 12/12/2020 Continue Invega patient remains guarded somewhat isolative but not threatening or aggressive sectioning [address] Continue plan of care 12/13/20 Continue plan of care 12/14/20 Discharge planning for 12/16/20. 12/15/20 Pt has showered and washed clothing in preparation for discharge. He is talkative with tw, expressed that he is pleased to be going home and that his hospitalization has been reasonable. Plan for 11am on 01/16/21. I spent ___20___ minutes with the patient and/or on the patient floor today, greater than?50% of which was spent counseling/coordinating care. Patient educated on: medication risk/benefits Informed Consent: understands Reason for contiued inpatient stay Substantial Risk for: stable for discharge
[2020-12-16 06:00] VITALS: BP 128/68; PULSE 67; RESP 16; TEMP 36.4; O2SAT 99
[2020-12-16] MEDS: Paliperidone ER 3 MG TAB.ER.24 PO (08:34)
--- NOTE | 2020-12-16 17:23 | P.DS_ITS ---
DS: Providers Provider Date of Service: 12/16/20 Date of admission: 11/26/20 13:56 Date of discharge: 12/16/20 Primary care physician: Unknown Physician Admitting clinician: Hannah Lin Attending physician on admission: Marty Shelton Attending physician on discharge: Marty Shelton Discharging clinician: Teresita Pineda DS: Diagnosis Discharge Diagnosis (1) Schizoaffective disorder: Status: Acute DS: Medications Discharge Medications Home Medications: Previous Rx's Medication Instructions Recorded benztropine 1 mg tablet 1 mg PO BID PRN #30 tab 12/16/20 paliperidone 3 mg tablet,extended 3 mg PO DAILY #30 tab 12/16/20 release 24 hr (Invega) paliperidone palmitate 234 mg/1.5 234 mg IM Q30D #1.5 ml 12/16/20 mL intramuscular syringe (Invega Sustenna) Mental Status Exam Mental Status Exam Patient Appearance: Appropriate Patient Orientation: Person, Place and Situation Level of Consciousness: Awake and Alert Patient Behavior: Appropriate, Guarded, Talkative and Poor Eye Contact (wears dark glasses) Mood Description: Withdrawn Affect Description: Withdrawn Patient Cognition Impaired: No Ability to Follow Directions: Good Speech Pattern: Spontaneous Speech Memory Description: Episodic Impaired Hallucinations: None (denies) Delusions: Not Present Thought Process: Intact Thought Content: positive for Intact Judgement: Good DS: Summary Hospital Course Hospital Course: Admission to adult psychiatry to address symptoms of acute psychosis. Civil commitment was filed. Pt agreed to accept medications and RAZA and court was continued. Eventually civil commitment petition was not needed upon discharge as pt had experienced symptom abatement. Invega po was initiated, titrated with transition to Invega Sustenna without adverse response. Benztropine was given in addition. Care plan, medication regime and out patient plan of care prior to admission were reviewed. Education was provided regarding managment of symptoms, medications and side effects. Nursing and social service worked extensively with patient on collateral contacts, care planning, education regarding symptom management, medications and discharge planning. Time spent discussing smoking cessation with patient: 3 to 10 minutes Status at Discharge Cognitive/behavioral status at discharge: non suicidal, non homicidal denies perceptual alterations no delusional content Functional status at discharge: independent ambulation Overall status at discharge: patient is progressing back to baseline Time Spent with Patient Time attestation: Total time spent providing and/or coordinating discharge services: 35 Time spent: Greater than 30 minutes Discharge Plan Discharge Patient Disposition: Xfer Other Discharge Diagnosis: Schizoaffective Disorder Referrals: [facility] [Other] - 1 Week (The Visiting RN will begin working with you 12/17/20- they will come to do a face to face visit. ) [facility] [Other] - 1 Week (office will reach out to him for a follow-up appointment.) Discharge Medications: New benztropine 1 mg Tablet 1 mg PO BID PRN (Reason: EPS) Qty: 30 RF: 0 paliperidone [Invega] 3 mg Tablet Extended Release 24 Hr 3 mg PO DAILY Qty: 30 RF: 0 Invega Sustenna 234 mg/1.5 mL syringe 234 mg IM Q30D Qty: 1.5 RF: 0 Invega Sustenna 234 mg/1.5 mL syringe 234 mg IM Q30D Qty: 1.5 RF: 0 Discharge Orders: Discharge Order (Routine); Ordered 12/16/20 Ordered By: Teresita Pineda Diet: advance to usual diet Activity on Discharge: As tolerated Stand Alone Forms: Patient Portal Discharge page, Community Support Care Plan Goals: Mood Stabilization Health Concerns: Schizoaffective Disorder Plan of Treatment: Take medications as directed Attend PCP appointments Your next Invega Sustenna injection will be due on 2019 Assessment: non-suicidal, non-homicidal, no sx of overt psychosis-denies voices, no delusional content, quiet-feeling ready to return to his residential team who help him at the hotel. Discharge Date/Time: 12/16/20 11:35
== END 2020-12-16 11:35 | disposition other institution (70) | DRG 750 ==
LOC: HO.ED 21:39 → HO.PM5 11-26 14:07
PROVIDERS: Physician Assistant; Admitting Provider Psychiatry & Neurology Psychiatry; Emergency Provider Internal Medicine; Visit Provider Clinical Nurse Specialist Psychiatric/Mental Health, Adult
DX: F25.9 Schizoaffective disorder, unspecified (principal); F17.210 Nicotine dependence, cigarettes, uncomplicated; Z71.6 Tobacco abuse counseling; Z20.822 Contact with and (suspected) exposure to COVID-19; Z79.899 Other long term (current) drug therapy
CPT/HCPCS: 36415; 80307; 81001; 87635; 99285; J1200; J2060; J2426